=== PATIENT | female | born 1930 | race African-American/Black ===

== ENCOUNTER 2016-08-20 15:15 | Emergency (ER) | payer MEDICARE, MEDICAID ==
[~2016-08-20] VITALS: Ht 167.6 cm; Wt 71.0 kg
[~2016-08-20 15:15] MED LIST: ACET-2178 PO; ALPR-392 PO; AMLO5TAB4 PO; CARV3.1242 PO; DIPH25CA83 PO; GABA-531 PO; HYDR-3992 PO; MONT10TA24 PO; NEPVIT PO; SEVE800T8 PO; TRAM50TA3 PO
[2016-08-20] MEDS ORDERED: DICL100G5 TP (15:40)
[2016-08-20] MEDS ORDERED: EZET10TA PO (15:40)
[2016-08-20] MEDS ORDERED: SODIUM CHLORIDE 0.9% 1,000 ML IV ONE (16:11)
[2016-08-20 16:28] LABS: BASOPHILS % 1.2 % (0.0-2.0); EOSINOPHILS % 1.8 % (0.0-5.0); HEMATOCRIT. 37.1 % (36.0-48.0); HEMOGLOBIN. 11.9 g/dL (12.0-16.0); LYMPHOCYTES % 23.3 % (20.0-50.0); MEAN CORPUSCULAR HGB CONC 32.2 g/dL (31.0-37.0); MEAN CORPUSCULAR VOLUME 87.1 fL (81.0-99.0); MEAN PLATELET VOLUME 8.3 fl (7.4-10.4); MONOCYTES % 11.1 % (2.0-8.0); NEUTROPHILS % 62.6 % (40.0-76.0); PLATELET 194 x1000/uL (130-400); RED BLOOD CELL COUNT 4.26 mill/uL (4.2-5.4); WHITE BLOOD COUNT 6.2 x1000/uL (4.5-11.0)
[2016-08-20 16:36] LABS: CALCIUM 8.8 mg/dL (8.5-10.1)
[2016-08-20 18:55] VITALS: BP 129/63
== END 2016-08-20 19:25 | disposition home or self-care (01) ==
LOC: ER 16:26
DX: R19.7 Diarrhea, unspecified (principal); F41.9 Anxiety disorder, unspecified; F32.9 Major depressive disorder, single episode, unspecified; I11.0 Hypertensive heart disease with heart failure; I50.9 Heart failure, unspecified; Z91.013 Allergy to seafood; Z88.5 Allergy status to narcotic agent; Z88.7 Allergy status to serum and vaccine; Z88.6 Allergy status to analgesic agent; Z91.012 Allergy to eggs; Z79.1 Long term (current) use of non-steroidal anti-inflammatories (NSAID); Z79.899 Other long term (current) drug therapy; Z90.710 Acquired absence of both cervix and uterus; Z99.2 Dependence on renal dialysis
CPT/HCPCS: 36415; 80048; 82962; 85025; 99284; J7030

== ENCOUNTER 2016-10-09 19:03 | Emergency (ER) | payer MEDICARE, MEDICAID ==
[~2016-10-09] VITALS: Ht 165.1 cm; Wt 66.0 kg
[~2016-10-09 19:03] MED LIST changes: +DICL100G5 TP; +EZET10TA PO
[2016-10-09 20:59] LABS: BASOPHILS % 1.3 % (0.0-2.0); EOSINOPHILS % 3.7 % (0.0-5.0); HEMATOCRIT. 38.1 % (36.0-48.0); HEMOGLOBIN. 12.5 g/dL (12.0-16.0); LYMPHOCYTES % 31.1 % (20.0-50.0); MEAN CORPUSCULAR HEMOGLOBIN 28.9 pg (28.0-32.0); MEAN CORPUSCULAR VOLUME 88.3 fL (81.0-99.0); MEAN PLATELET VOLUME 8.5 fl (7.4-10.4); MONOCYTES % 13.9 % (2.0-8.0); PLATELET 147 x1000/uL (130-400); RED BLOOD CELL COUNT 4.31 mill/uL (4.2-5.4); RED CELL DISTRIBUTION WIDTH 17.8 % (11.6-14.6)
[2016-10-09 21:03] LABS: PARTIAL THROMBOPLASTIN TIME 26.1 sec (24.0-34.0); PROTHROMBIN TIME 10.6 sec
[2016-10-09 21:12] LABS: CARBON DIOXIDE 30 mEq/L (21-32); CHLORIDE 97 mEq/L (98-107); TROPONIN I 0.11 ng/mL (0.00-0.04)
[2016-10-09 22:57] VITALS: BP 127/55
== END 2016-10-09 23:51 | disposition home or self-care (01) ==
LOC: ER 19:05
DX: R19.7 Diarrhea, unspecified (principal); I12.0 Hypertensive chronic kidney disease with stage 5 chronic kidney disease or end stage renal disease; E11.22 Type 2 diabetes mellitus with diabetic chronic kidney disease; N18.6 End stage renal disease; Z99.2 Dependence on renal dialysis; Z88.8 Allergy status to other drugs, medicaments and biological substances; Z88.5 Allergy status to narcotic agent; Z79.899 Other long term (current) drug therapy; Z91.012 Allergy to eggs; Z91.018 Allergy to other foods; Z88.6 Allergy status to analgesic agent
CPT/HCPCS: 36415; 71010; 80053; 83690; 84484; 85025; 85610; 85730; 86850; 86900; 99285

== ENCOUNTER 2017-01-07 14:59 | Inpatient (IN) | payer MEDICARE, MEDICAID ==
[~2017-01-07] VITALS: Ht 165.1 cm; Wt 71.2 kg
[~2017-01-07 14:59] MED LIST changes: +DICL100G16 TP; -DICL100G5 TP; -EZET10TA PO; +ZET10 PO
[2017-01-07 16:53] LABS: CHLORIDE 96 mEq/L (98-107)
[2017-01-07 16:54] LABS: PROTHROMBIN TIME 10.7 sec (9.4-11.6)
[2017-01-07 16:55] LABS: BASOPHILS % 0.7 % (0.0-2.0); EOSINOPHILS % 2.3 % (0.0-5.0); HEMATOCRIT. 34.9 % (36.0-48.0); HEMOGLOBIN. 11.6 g/dL (12.0-16.0); LYMPHOCYTES % 24.7 % (20.0-50.0); MEAN CORPUSCULAR VOLUME 90.6 fL (81.0-99.0); MONOCYTES % 12.8 % (2.0-8.0); NEUTROPHILS % 59.5 % (40.0-76.0); PLATELET 196 x1000/uL (130-400); RED BLOOD CELL COUNT 3.86 mill/uL (4.2-5.4); RED CELL DISTRIBUTION WIDTH 19.2 % (11.6-14.6)
[2017-01-07 17:04] LABS: CARBON DIOXIDE 29 mEq/L (21-32); TROPONIN I 0.07 ng/mL (0.00-0.04)
[2017-01-07 22:00] VITALS: BP 134/49
[2017-01-07] MEDS ORDERED: DEXTROSE 50% WATER 50ML SYRINGE IV PRN (23:15)
[2017-01-07] MEDS ORDERED: ACETAMINOPHEN 325MG TABLET PO PRN (23:30)
[2017-01-08 00:02] VITALS: BP 147/48
[2017-01-08 04:00] VITALS: BP_SYST 110; BP_SYST 157; BP_DIAS 51; BP_DIAS 59
[2017-01-08] MEDS: HYDROCODONE/ACETAMINOPHEN 5/325MG TABLET PO PRN ×2 (05:24→21:22)
[2017-01-08 06:32] LABS: PHOSPHORUS 4.1 mg/dL (2.5-4.9); PREALBUMIN 19.7 mg/dL (20.0-40.0); T4 FREE 1.02 ng/dL (0.76-1.46)
[2017-01-08 07:11] LABS: CORTISOL 7.9 ucg/dL
[2017-01-08 07:15] LABS: VITAMIN B12 SERUM > 2000.0 pg/mL (211-911)
[2017-01-08 08:00] VITALS: BP 135/50
[2017-01-08] MEDS: BLOOD SUGAR DIAGNOSTIC STRIP TEST SCH ×4 (08:09→21:00)
[2017-01-08] MEDS: LOSARTAN POTASSIUM 25 MG TABLET PO SCH (09:00)
[2017-01-08] MEDS: CARVEDILOL 3.125 MG TABLET PO SCH ×2 (09:00→21:00)
[2017-01-08] MEDS: FOLIC ACID/VITAMIN B COMP W-C TABLET PO SCH (10:02)
[2017-01-08] MEDS: FAMOTIDINE 20MG TABLET PO SCH (10:02)
[2017-01-08] MEDS: SEVELAMER CARBONATE 800 MG TABLET PO SCH ×3 (10:03→18:38)
[2017-01-08 12:00] VITALS: BP_SYST 110; BP_SYST 121; BP_DIAS 50; BP_DIAS 77
[2017-01-08 16:00] VITALS: BP 114/54
[2017-01-08 20:00] VITALS: BP 137/60
[2017-01-08 20:46] LABS: CLARITY URINE CLOUDY (CLEAR); COLOR URINE DARK YELLOW (YELLOW); GLUCOSE URINE NEGATIVE (NEGATIVE); KETONES URINE TRACE (NEGATIVE); LEUKOCYTE ESTERASE URINE TRACE (NEGATIVE); NITRITE URINE NEGATIVE (NEGATIVE); OCCULT BLOOD URINE NEGATIVE (NEGATIVE); PROTEIN URINE 1+ (NEGATIVE); SPECIFIC GRAVITY URINE 1.018 (1.005-1.030); UROBILINOGEN URINE 0.2 E.U./dL (0.2-1.0)
[2017-01-08] MEDS ORDERED: EPOETIN ALFA 4000UNITS/ML VIAL SUBCUT SCH (21:00)
[2017-01-09] VITALS (7 sets, daily range): BP systolic 96–172; BP diastolic 40–68
[2017-01-09] MEDS: ATORVASTATIN CALCIUM 10MG TABLET PO SCH ×2 (01:55→22:46)
[2017-01-09] MEDS: HYDROCODONE/ACETAMINOPHEN 5/325MG TABLET PO PRN (04:47)
[2017-01-09 05:29] LABS: BASOPHILS % 0.6 % (0.0-2.0); HEMATOCRIT. 36.5 % (36.0-48.0); LYMPHOCYTES % 16.2 % (20.0-50.0); MEAN CORPUSCULAR HEMOGLOBIN 30.4 pg (28.0-32.0); MEAN CORPUSCULAR VOLUME 92.6 fL (81.0-99.0); MEAN PLATELET VOLUME 8.1 fl (7.4-10.4); MONOCYTES % 12.7 % (2.0-8.0); NEUTROPHILS % 68.5 % (40.0-76.0); PLATELET 212 x1000/uL (130-400); RED BLOOD CELL COUNT 3.94 mill/uL (4.2-5.4); RED CELL DISTRIBUTION WIDTH 18.7 % (11.6-14.6)
[2017-01-09 06:28] LABS: PHOSPHORUS 2.7 mg/dL (2.5-4.9)
[2017-01-09] MEDS: BLOOD SUGAR DIAGNOSTIC STRIP TEST SCH ×4 (07:40→22:47)
[2017-01-09] MEDS: CLOPIDOGREL 75MG TABLET PO SCH (09:02)
[2017-01-09] MEDS: SEVELAMER CARBONATE 800 MG TABLET PO SCH ×3 (09:02→18:27)
[2017-01-09] MEDS: FOLIC ACID/VITAMIN B COMP W-C TABLET PO SCH (09:02)
[2017-01-09] MEDS: FAMOTIDINE 20MG TABLET PO SCH (09:02)
[2017-01-09] MEDS: CARVEDILOL 3.125 MG TABLET PO SCH ×2 (09:03→22:46)
[2017-01-09] MEDS: LOSARTAN POTASSIUM 25 MG TABLET PO SCH (09:03)
[2017-01-09] MEDS ORDERED: BISACODYL 10MG SUPP PR PRN (13:45)
[2017-01-09] MEDS: LACTULOSE 20G/30ML UDC PO SCH ×2 (15:15→22:00)
[2017-01-09] MEDS ORDERED: LIDOCAINE HCL 1% 20ML VIAL (Pyxis) INJ INFIL NR (16:00)
[2017-01-09] MEDS ORDERED: METHYLPREDNISOLONE ACETATE 40MG/ML VIAL IM NR (16:00)
[2017-01-10] VITALS (7 sets, daily range): BP systolic 104–169; BP diastolic 46–69
[2017-01-10] MEDS: LACTULOSE 20G/30ML UDC PO SCH ×2 (05:59→14:00)
[2017-01-10] MEDS: BLOOD SUGAR DIAGNOSTIC STRIP TEST SCH ×3 (07:40→17:40)
[2017-01-10 07:43] LABS: BASOPHILS % 0.5 % (0.0-2.0); EOSINOPHILS % 1.6 % (0.0-5.0); HEMATOCRIT. 35.2 % (36.0-48.0); HEMOGLOBIN. 11.7 g/dL (12.0-16.0); LYMPHOCYTES % 20.2 % (20.0-50.0); MEAN CORPUSCULAR HEMOGLOBIN 30.3 pg (28.0-32.0); MEAN CORPUSCULAR VOLUME 91.3 fL (81.0-99.0); MEAN PLATELET VOLUME 8.4 fl (7.4-10.4); MONOCYTES % 12.8 % (2.0-8.0); NEUTROPHILS % 64.9 % (40.0-76.0); PLATELET 210 x1000/uL (130-400); RED BLOOD CELL COUNT 3.86 mill/uL (4.2-5.4); RED CELL DISTRIBUTION WIDTH 19.2 % (11.6-14.6)
[2017-01-10] MEDS: FAMOTIDINE 20MG TABLET PO SCH (09:13)
[2017-01-10] MEDS: FOLIC ACID/VITAMIN B COMP W-C TABLET PO SCH (09:13)
[2017-01-10] MEDS: CARVEDILOL 3.125 MG TABLET PO SCH (09:13)
[2017-01-10] MEDS: SEVELAMER CARBONATE 800 MG TABLET PO SCH ×3 (09:13→18:29)
[2017-01-10] MEDS: LOSARTAN POTASSIUM 25 MG TABLET PO SCH (09:13)
[2017-01-10] MEDS: CLOPIDOGREL 75MG TABLET PO SCH (09:14)
[2017-01-11 07:22] LABS: 25-HYDROXY VITAMIN D3 8.4 ng/mL (.)
== END 2017-01-10 20:10 | disposition home or self-care (01) | DRG 551 ==
LOC: EDBEDREQ 19:00 → ER 19:14 → ENRESERV 19:37 → 7WST 21:54
PROVIDERS: ADMIT Internal Medicine Endocrinology, Diabetes & Metabolism; ATTEND Internal Medicine Endocrinology, Diabetes & Metabolism
DX: M48.02 Spinal stenosis, cervical region (principal); N18.6 End stage renal disease; I13.2 Hypertensive heart and chronic kidney disease with heart failure and with stage 5 chronic kidney disease, or end stage renal disease; E46 Unspecified protein-calorie malnutrition; E11.22 Type 2 diabetes mellitus with diabetic chronic kidney disease; E11.42 Type 2 diabetes mellitus with diabetic polyneuropathy; I27.2 Other secondary pulmonary hypertension; I48.91 Unspecified atrial fibrillation; E11.51 Type 2 diabetes mellitus with diabetic peripheral angiopathy without gangrene; E11.621 Type 2 diabetes mellitus with foot ulcer; I69.351 Hemiplegia and hemiparesis following cerebral infarction affecting right dominant side; G95.9 Disease of spinal cord, unspecified; D47.2 Monoclonal gammopathy; E78.5 Hyperlipidemia, unspecified; D63.8 Anemia in other chronic diseases classified elsewhere; Z99.2 Dependence on renal dialysis; I95.1 Orthostatic hypotension; E11.319 Type 2 diabetes mellitus with unspecified diabetic retinopathy without macular edema; E11.43 Type 2 diabetes mellitus with diabetic autonomic (poly)neuropathy; E78.00 Pure hypercholesterolemia, unspecified; H54.8 Legal blindness, as defined in USA; H91.90 Unspecified hearing loss, unspecified ear; I25.10 Atherosclerotic heart disease of native coronary artery without angina pectoris; I50.9 Heart failure, unspecified; I65.29 Occlusion and stenosis of unspecified carotid artery; J44.9 Chronic obstructive pulmonary disease, unspecified; K59.00 Constipation, unspecified; M15.9 Polyosteoarthritis, unspecified; M48.06 Spinal stenosis, lumbar region; R62.7 Adult failure to thrive; E55.9 Vitamin D deficiency, unspecified; L97.529 Non-pressure chronic ulcer of other part of left foot with unspecified severity; M51.36 Other intervertebral disc degeneration, lumbar region; M50.30 Other cervical disc degeneration, unspecified cervical region; R29.6 Repeated falls; I69.328 Other speech and language deficits following cerebral infarction; Z80.1 Family history of malignant neoplasm of trachea, bronchus and lung; Z80.3 Family history of malignant neoplasm of breast; Z82.3 Family history of stroke; Z83.3 Family history of diabetes mellitus; Z86.79 Personal history of other diseases of the circulatory system; Z87.19 Personal history of other diseases of the digestive system; Z90.710 Acquired absence of both cervix and uterus; Z90.722 Acquired absence of ovaries, bilateral; Z98.41 Cataract extraction status, right eye; Z98.42 Cataract extraction status, left eye; S43.101A Unspecified dislocation of right acromioclavicular joint, initial encounter; X58.XXXA Exposure to other specified factors, initial encounter; Y93.89 Activity, other specified; Y92.89 Other specified places as the place of occurrence of the external cause; Y99.8 Other external cause status; Z88.6 Allergy status to analgesic agent; Z91.012 Allergy to eggs; Z91.013 Allergy to seafood; Z88.8 Allergy status to other drugs, medicaments and biological substances; Z91.018 Allergy to other foods
CPT/HCPCS: 36415; 70450; 70551; 71010; 72141; 73030; 74010; 80048; 80053; 81001; 82306; 82533; 82607; 82962; 83605; 84100; 84134; 84439; 84443; 84484; 85025; 85610; 86850; 86900; 87040; 87077; 87086; 87186; 92523; 97035; 97110; 97162; 97166; 97530; 99285; C1893; J1030; J3490

== ENCOUNTER 2017-02-26 11:19 | Emergency (ER) | payer MEDICARE, MEDICAID ==
[~2017-02-26] VITALS: Ht 165.1 cm; Wt 70.0 kg
[2017-02-26 13:19] LABS: BASOPHILS % 0.6 % (0.0-2.0); EOSINOPHILS % 0.9 % (0.0-5.0); HEMATOCRIT. 38.3 % (36.0-48.0); HEMOGLOBIN. 12.8 g/dL (12.0-16.0); LYMPHOCYTES % 14.6 % (20.0-50.0); MEAN CORPUSCULAR HEMOGLOBIN 31.8 pg (28.0-32.0); MEAN CORPUSCULAR VOLUME 95.2 fL (81.0-99.0); MEAN PLATELET VOLUME 7.5 fl (7.4-10.4); MONOCYTES % 13.6 % (2.0-8.0); NEUTROPHILS % 70.3 % (40.0-76.0); PLATELET 177 x1000/uL (130-400); RED BLOOD CELL COUNT 4.02 mill/uL (4.2-5.4); RED CELL DISTRIBUTION WIDTH 20.4 % (11.6-14.6)
[2017-02-26 13:29] LABS: AMMONIA < 25 uMol/L (<32)
[2017-02-26 13:35] LABS: CARBON DIOXIDE 34 mEq/L (21-32); CHLORIDE 93 mEq/L (98-107); TROPONIN I 0.09 ng/mL (0.00-0.04)
[2017-02-26 17:49] VITALS: BP 156/54
== END 2017-02-26 17:48 | disposition home or self-care (01) ==
LOC: ER 12:27
DX: R25.1 Tremor, unspecified (principal); R51 Headache; I51.7 Cardiomegaly; E11.9 Type 2 diabetes mellitus without complications; I10 Essential (primary) hypertension; F03.90 Unspecified dementia, unspecified severity, without behavioral disturbance, psychotic disturbance, mood disturbance, and anxiety; Z88.6 Allergy status to analgesic agent; Z88.8 Allergy status to other drugs, medicaments and biological substances; Z99.2 Dependence on renal dialysis; Z86.73 Personal history of transient ischemic attack (TIA), and cerebral infarction without residual deficits; Z90.710 Acquired absence of both cervix and uterus; Z91.012 Allergy to eggs; Z91.013 Allergy to seafood
CPT/HCPCS: 36415; 70450; 71010; 80053; 82140; 83605; 83690; 83880; 84484; 85025; 87040; 93005; 99285; J7030

== ENCOUNTER 2018-01-15 20:11 | Inpatient (IN) | payer MEDICARE, MEDICAID ==
[~2018-01-15] VITALS: Ht 165.1 cm; Wt 68.0 kg
[~2018-01-15 20:11] MED LIST changes: -ALPR-392 PO; -DICL100G16 TP; -DIPH25CA83 PO; +FOLI1TAB33 PO; -NEPVIT PO; -ZET10 PO
[2018-01-15 21:29] LABS: CHLORIDE 103 mEq/L (98-107)
[2018-01-15 21:30] LABS: BASOPHILS % 0.5 % (0.0-2.0); EOSINOPHILS % 2.4 % (0.0-5.0); HEMOGLOBIN. 12.7 g/dL (12.0-16.0); INR 1.1; LYMPHOCYTES % 11.7 % (20.0-50.0); MEAN CORPUSCULAR HEMOGLOBIN 28.5 pg (28.0-32.0); MEAN CORPUSCULAR VOLUME 92.2 fL (81.0-99.0); MEAN PLATELET VOLUME 8.9 fl (7.4-10.4); MONOCYTES % 11.2 % (2.0-8.0); NEUTROPHILS % 74.2 % (40.0-76.0); PLATELET 158 x1000/uL (130-400); PROTHROMBIN TIME 11.2 sec (9.1-11.1); RED BLOOD CELL COUNT 4.45 mill/uL (4.2-5.4); RED CELL DISTRIBUTION WIDTH 19.4 % (11.6-14.6)
[2018-01-15 23:22] LABS: CLARITY URINE TURBID (CLEAR); COLOR URINE YELLOW (YELLOW); KETONES URINE TRACE (NEGATIVE); LEUKOCYTE ESTERASE URINE 3+ (NEGATIVE); NITRITE URINE NEGATIVE (NEGATIVE); OCCULT BLOOD URINE 2+ (NEGATIVE); PROTEIN URINE 4+ (NEGATIVE); SPECIFIC GRAVITY URINE 1.015 (1.005-1.030); UROBILINOGEN URINE 0.2 E.U./dL (0.2-1.0)
[2018-01-15] MEDS ORDERED: VANCOMYCIN 1 G PREMIX 200 ML IV SCH (23:45)
[2018-01-15] MEDS ORDERED: PIPERACILLIN/TAZ 3.375G PREMIX 50 ML IV SCH (23:48)
[2018-01-16 06:00] VITALS: BP 185/71
[2018-01-16] MEDS ORDERED: ACETAMINOPHEN 325 MG PO SCH (07:30)
[2018-01-16] MEDS ORDERED: HYDROXYZINE PAMOATE 25 MG PO SCH (07:30)
[2018-01-16] MEDS ORDERED: MEDICATION NOT ON FORMULARY EA (Tramadol Hcl 50 MG) PO SCH (07:30)
[2018-01-16] MEDS ORDERED: HYDROXYZINE PAMOATE 25 MG PO PRN (07:45)
[2018-01-16] MEDS ORDERED: ACETAMINOPHEN 325MG TABLET PO PRN (07:45)
[2018-01-16 08:00] VITALS: BP 190/76
[2018-01-16] MEDS ORDERED: TRAMADOL 50MG TABLET PO PRN (08:00)
[2018-01-16] MEDS: GABAPENTIN 300MG CAPSULE PO SCH ×3 (08:21→21:33)
[2018-01-16] MEDS: FOLIC ACID/VITAMIN B COMP W-C TABLET PO SCH (08:21)
[2018-01-16] MEDS: SEVELAMER CARBONATE 800 MG TABLET PO SCH ×3 (08:21→18:31)
[2018-01-16] MEDS: CARVEDILOL 3.125 MG TABLET PO SCH ×2 (08:21→20:58)
[2018-01-16] MEDS: AMLODIPINE 5MG TABLET PO SCH (08:22)
[2018-01-16] MEDS ORDERED: SEVELAMER CARBONATE 2400 MG PO SCH (09:00)
[2018-01-16] MEDS ORDERED: MEDICATION NOT ON FORMULARY EA (Amlodipine Besylate (Norvasc) 5 MG) PO SCH (09:00)
[2018-01-16] MEDS ORDERED: VIT B COMPLEX AND C PO SCH (09:00)
[2018-01-16] MEDS ORDERED: MEDICATION NOT ON FORMULARY EA (Gabapentin 300 MG) PO SCH (09:00)
[2018-01-16] MEDS ORDERED: [UNRECOGNIZED DRUG - OTHER] PO SCH (09:00)
[2018-01-16] MEDS ORDERED: FOLIC ACID PO SCH (09:00)
[2018-01-16 12:00] VITALS: BP 150/60
[2018-01-16] MEDS: BLOOD SUGAR DIAGNOSTIC STRIP TEST SCH ×3 (12:10→20:44)
[2018-01-16 16:00] VITALS: BP 105/72
[2018-01-16] MEDS ORDERED: SODIUM CHLORIDE 0.45% 1,000 ML IV ONE (16:00)
[2018-01-16] MEDS: NYSTATIN 100,000 UNITS/ML 5ML UDC SSW SCH (18:31)
[2018-01-16] MEDS: MONTELUKAST SODIUM 10MG TABLET PO SCH (18:31)
[2018-01-16] MEDS ORDERED: PIPERACILLIN/TAZOBACTAM 2.25 G in DEXTROSE 5% WATER 50 ML IV SCH (19:00)
[2018-01-16 20:00] VITALS: BP 144/52
[2018-01-16] MEDS: PIPERACILLIN/TAZ 2.25G PREMIX 50 ML IV SCH (21:02)
[2018-01-17] VITALS: BP 159/67
[2018-01-17] MEDS: NYSTATIN 100,000 UNITS/ML 5ML UDC SSW SCH ×4 (00:16→17:27)
[2018-01-17 04:00] VITALS: BP 170/78
[2018-01-17] MEDS: PIPERACILLIN/TAZ 2.25G PREMIX 50 ML IV SCH ×3 (05:21→21:15)
[2018-01-17] MEDS: GABAPENTIN 300MG CAPSULE PO SCH ×3 (05:21→21:15)
[2018-01-17] MEDS: BLOOD SUGAR DIAGNOSTIC STRIP TEST SCH ×4 (07:10→20:12)
[2018-01-17 07:33] LABS: BASOPHILS % 0.5 % (0.0-2.0); EOSINOPHILS % 3.3 % (0.0-5.0); HEMOGLOBIN. 12.4 g/dL (12.0-16.0); LYMPHOCYTES % 8.3 % (20.0-50.0); MEAN CORPUSCULAR HEMOGLOBIN 28.4 pg (28.0-32.0); MEAN CORPUSCULAR VOLUME 89.9 fL (81.0-99.0); MEAN PLATELET VOLUME 8.9 fl (7.4-10.4); MONOCYTES % 12.2 % (2.0-8.0); NEUTROPHILS % 75.7 % (40.0-76.0); PLATELET 122 x1000/uL (130-400); RED BLOOD CELL COUNT 4.34 mill/uL (4.2-5.4); RED CELL DISTRIBUTION WIDTH 18.7 % (11.6-14.6)
[2018-01-17 07:36] LABS: PHOSPHORUS 2.4 mg/dL (2.5-4.9)
[2018-01-17] MEDS: SEVELAMER CARBONATE 800 MG TABLET PO SCH ×4 (07:40→17:27)
[2018-01-17 08:00] VITALS: BP 173/69
[2018-01-17] MEDS: AMLODIPINE 5MG TABLET PO SCH (09:43)
[2018-01-17] MEDS: CARVEDILOL 3.125 MG TABLET PO SCH ×2 (09:43→20:09)
[2018-01-17] MEDS: FOLIC ACID/VITAMIN B COMP W-C TABLET PO SCH (09:43)
[2018-01-17 14:04] VITALS: BP 154/56
[2018-01-17 16:18] VITALS: BP 154/61
[2018-01-17] MEDS: MONTELUKAST SODIUM 10MG TABLET PO SCH (17:27)
[2018-01-17] MEDS ORDERED: SODIUM PHOS,M-BASIC-D-BASIC 10 MM in DEXT 5% WATER 246.6667 ML IV NR (18:30)
[2018-01-17 20:00] VITALS: BP 176/75
[2018-01-17] MEDS ORDERED: CLONIDINE 0.1MG TABLET PO PRN (20:00)
[2018-01-18] VITALS (8 sets, daily range): BP systolic 128–182; BP diastolic 44–78
[2018-01-18] MEDS: PIPERACILLIN/TAZ 2.25G PREMIX 50 ML IV SCH (05:23)
[2018-01-18] MEDS: NYSTATIN 100,000 UNITS/ML 5ML UDC SSW SCH ×4 (05:24→17:34)
[2018-01-18] MEDS: GABAPENTIN 300MG CAPSULE PO SCH ×2 (05:24→15:37)
[2018-01-18] MEDS ORDERED: VANCOMYCIN 1 G PREMIX 200 ML IV NR (06:00)
[2018-01-18] MEDS: BLOOD SUGAR DIAGNOSTIC STRIP TEST SCH ×3 (06:25→16:42)
[2018-01-18] MEDS: FOLIC ACID/VITAMIN B COMP W-C TABLET PO SCH (08:43)
[2018-01-18] MEDS: AMLODIPINE 5MG TABLET PO SCH (08:44)
[2018-01-18] MEDS: CARVEDILOL 3.125 MG TABLET PO SCH (08:44)
[2018-01-18] MEDS: SEVELAMER CARBONATE 800 MG TABLET PO SCH ×3 (08:50→17:34)
[2018-01-18 09:26] LABS: PHOSPHORUS 3.9 mg/dL (2.5-4.9)
[2018-01-18] MEDS: LIPASE/PROTEASE/AMYLASE 4,200/14,200/24,600 UNITS CAP DR PO SCH ×2 (12:40→17:34)
[2018-01-18] MEDS: MONTELUKAST SODIUM 10MG TABLET PO SCH (17:34)
== END 2018-01-18 22:40 | disposition home IV services (08) | DRG 152 ==
LOC: ER 20:11 → 8WST 01-16 00:01 → EDBEDREQSVC 01-16 01:01 → EDBEDREQ 01-16 01:01 → EDBEDREQTM 01-16 01:06 → EDBEDREQDT 01-16 01:06 → ENRESERV 01-16 04:13
PROVIDERS: ADMIT Internal Medicine Endocrinology, Diabetes & Metabolism; ATTEND Internal Medicine Endocrinology, Diabetes & Metabolism
PROC: 5A1D70Z Performance of Urinary Filtration, Intermittent, Less than 6 Hours Per Day (ICD-10-PCS; 2018-01-16)
PROC: 5A1D70Z Performance of Urinary Filtration, Intermittent, Less than 6 Hours Per Day (ICD-10-PCS; principal; 2018-01-17)
DX: J02.9 Acute pharyngitis, unspecified (principal); N18.6 End stage renal disease; G95.20 Unspecified cord compression; I12.0 Hypertensive chronic kidney disease with stage 5 chronic kidney disease or end stage renal disease; E46 Unspecified protein-calorie malnutrition; I27.20 Pulmonary hypertension, unspecified; K80.20 Calculus of gallbladder without cholecystitis without obstruction; D47.2 Monoclonal gammopathy; M15.9 Polyosteoarthritis, unspecified; K44.9 Diaphragmatic hernia without obstruction or gangrene; E83.39 Other disorders of phosphorus metabolism; D64.9 Anemia, unspecified; E11.22 Type 2 diabetes mellitus with diabetic chronic kidney disease; E11.319 Type 2 diabetes mellitus with unspecified diabetic retinopathy without macular edema; E11.42 Type 2 diabetes mellitus with diabetic polyneuropathy; M48.061 Spinal stenosis, lumbar region without neurogenic claudication; E11.621 Type 2 diabetes mellitus with foot ulcer; E11.69 Type 2 diabetes mellitus with other specified complication; E78.00 Pure hypercholesterolemia, unspecified; R09.02 Hypoxemia; R47.02 Dysphasia; H54.7 Unspecified visual loss; E86.0 Dehydration; I25.10 Atherosclerotic heart disease of native coronary artery without angina pectoris; I48.0 Paroxysmal atrial fibrillation; E11.51 Type 2 diabetes mellitus with diabetic peripheral angiopathy without gangrene; I95.1 Orthostatic hypotension; J44.9 Chronic obstructive pulmonary disease, unspecified; K21.9 Gastro-esophageal reflux disease without esophagitis; K22.2 Esophageal obstruction; K86.89 Other specified diseases of pancreas; Z80.1 Family history of malignant neoplasm of trachea, bronchus and lung; Z80.3 Family history of malignant neoplasm of breast; Z82.3 Family history of stroke; Z82.49 Family history of ischemic heart disease and other diseases of the circulatory system; Z83.3 Family history of diabetes mellitus; Z86.010 Personal history of colon polyps; Z86.73 Personal history of transient ischemic attack (TIA), and cerebral infarction without residual deficits; Z86.79 Personal history of other diseases of the circulatory system; Z87.19 Personal history of other diseases of the digestive system; Z90.710 Acquired absence of both cervix and uterus; Z99.2 Dependence on renal dialysis; Z91.013 Allergy to seafood; Z91.012 Allergy to eggs; Z88.8 Allergy status to other drugs, medicaments and biological substances; Z88.5 Allergy status to narcotic agent; Z91.018 Allergy to other foods; Z79.899 Other long term (current) drug therapy; Z90.722 Acquired absence of ovaries, bilateral; Z98.41 Cataract extraction status, right eye; Z98.42 Cataract extraction status, left eye; Z86.14 Personal history of Methicillin resistant Staphylococcus aureus infection; Z68.25 Body mass index [BMI] 25.0-25.9, adult
CPT/HCPCS: 36415; 70450; 71045; 80048; 80053; 80202; 81003; 82550; 82962; 83605; 83735; 83880; 84100; 84484; 85025; 85610; 85651; 86140; 87040; 87070; 87086; 87106; 87205; 93005; 96365; 96366; 99285; J2543; J3370; J3490; J7030; J7050; J7060

== ENCOUNTER → 2018-02-12 | Day surgery (SDC) | payer MEDICARE, MEDICAID ==
[~2018-02-12] VITALS: Ht 167.6 cm; Wt 71.2 kg
[2018-02-12] VITALS (12 sets, daily range): BP systolic 195–201; BP diastolic 77–95
[~2018-02-12] MED LIST changes: +CEFAZOLIN 1000MG PREMIX 50 ML IV ONE; +FENTANYL CITRATE/PF 50MCG/ML 2ML VIAL IV ONE; +FENTANYL CITRATE/PF 50MCG/ML 2ML VIAL ONE; +HEPARIN 1000 UNITS/ML 10ML ONE; +IOHEXOL-300 100 ML BOTTLE ONE; +LIDOCAINE HCL 1% 20ML VIAL (Pyxis) INJ ONE; +SODIUM BICARBONATE 4% (2.4MEQ) 5ML VIAL IV ONE
[2018-02-12 10:03] LABS: HEMATOCRIT. 41.8 % (36.0-48.0); HEMOGLOBIN. 13.3 g/dL (12.0-16.0); MEAN CORPUSCULAR HEMOGLOBIN 28.4 pg (28.0-32.0); MEAN PLATELET VOLUME 8.4 fl (7.4-10.4); PLATELET 191 x1000/uL (130-400); RED CELL DISTRIBUTION WIDTH 19.9 % (11.6-14.6)
[2018-02-12 10:13] LABS: INR 1.1; PARTIAL THROMBOPLASTIN TIME 29.1 sec (23.4-31.0); PROTHROMBIN TIME 10.6 sec (9.1-11.1)
[2018-02-12 11:17] LABS: PLATELET ESTIMATE NORMAL
== END | disposition home or self-care (01) ==
LOC: ANGIO 09:22
PROVIDERS: ATTEND Internal Medicine Nephrology
DX: E11.22 Type 2 diabetes mellitus with diabetic chronic kidney disease (principal); N18.6 End stage renal disease; J44.9 Chronic obstructive pulmonary disease, unspecified; E11.42 Type 2 diabetes mellitus with diabetic polyneuropathy; E78.00 Pure hypercholesterolemia, unspecified; I25.10 Atherosclerotic heart disease of native coronary artery without angina pectoris
CPT/HCPCS: 36415; 36558; 76937; 77001; 82947; 84132; 85025; 85610; 85730; C1725; C1750; C1769; J0690; J1644; J3010; J3490; J7040; Q9967; J7050

== ENCOUNTER 2018-03-08 04:41 | Inpatient (IN) | payer MEDICARE, MEDICAID ==
[~2018-03-08] VITALS: Ht 165.1 cm; Wt 70.3 kg
[~2018-03-08 04:41] MED LIST changes: -CEFAZOLIN 1000MG PREMIX 50 ML IV ONE; -FENTANYL CITRATE/PF 50MCG/ML 2ML VIAL IV ONE; -FENTANYL CITRATE/PF 50MCG/ML 2ML VIAL ONE; -HEPARIN 1000 UNITS/ML 10ML ONE; -IOHEXOL-300 100 ML BOTTLE ONE; -LIDOCAINE HCL 1% 20ML VIAL (Pyxis) INJ ONE; -SODIUM BICARBONATE 4% (2.4MEQ) 5ML VIAL IV ONE
[2018-03-08] MEDS ORDERED: ACETAMINOPHEN 325MG TABLET PO STA (05:14)
[2018-03-08] MEDS ORDERED: ONDANSETRON HCL 4MG/2ML INJ IV STA (05:14)
[2018-03-08] MEDS ORDERED: PIPERACILLIN/TAZ 3.375G PREMIX 50 ML IV ONE (05:15)
[2018-03-08] MEDS ORDERED: KETOROLAC 15MG/ML VIAL IV ONE (05:15)
[2018-03-08] MEDS ORDERED: VANCOMYCIN 1 G PREMIX 200 ML IV ONE (05:15)
[2018-03-08 06:42] LABS: HEMATOCRIT. 46.9 % (36.0-48.0); HEMOGLOBIN. 14.5 g/dL (12.0-16.0); MEAN CORPUSCULAR HEMOGLOBIN 27.7 pg (28.0-32.0); MEAN CORPUSCULAR VOLUME 89.8 fL (81.0-99.0); MEAN PLATELET VOLUME 8.5 fl (7.4-10.4); PLATELET 142 x1000/uL (130-400); RED BLOOD CELL COUNT 5.22 mill/uL (4.2-5.4)
[2018-03-08 06:47] LABS: INR 1.1; PROTHROMBIN TIME 11.4 sec (9.1-11.1)
[2018-03-08 06:51] LABS: CHLORIDE 100 mEq/L (98-107)
[2018-03-08 07:34] LABS: PLATELET ESTIMATE NORMAL
[2018-03-08] MEDS ORDERED: CLONIDINE 0.1MG TABLET PO PRN (10:45)
[2018-03-08 11:20] LABS: CLARITY URINE TURBID (CLEAR); COLOR URINE YELLOW (YELLOW); KETONES URINE NEGATIVE (NEGATIVE); LEUKOCYTE ESTERASE URINE 3+ (NEGATIVE); NITRITE URINE NEGATIVE (NEGATIVE); OCCULT BLOOD URINE 2+ (NEGATIVE); PH URINE 7.5 (4.5-8.0); PROTEIN URINE 3+ (NEGATIVE); SPECIFIC GRAVITY URINE 1.012 (1.005-1.030); UROBILINOGEN URINE 0.2 E.U./dL (0.2-1.0)
[2018-03-08] MEDS ORDERED: AMLODIPINE 5MG TABLET PO SCH (13:54)
[2018-03-08] MEDS ORDERED: PIPERACILLIN/TAZ 2.25G PREMIX 50 ML IV SCH ×2 (14:00→22:00)
[2018-03-08] MEDS ORDERED: CARVEDILOL 3.125 MG TABLET PO SCH ×2 (14:00→21:00)
[2018-03-08] MEDS ORDERED: DEXTROSE 5% WATER 1,000 ML IV SCH (14:01)
[2018-03-08] MEDS: BLOOD SUGAR DIAGNOSTIC STRIP TEST SCH ×2 (14:07→18:00)
[2018-03-08 16:00] VITALS: BP 178/73
[2018-03-08] MEDS ORDERED: HEPARIN SODIUM 1,000 UNIT/1ML VIAL IV NR (18:00)
[2018-03-08] MEDS: INSULIN LISPRO 100 UNITS/ML SUBCUT SCH (18:00)
[2018-03-08] MEDS ORDERED: VANCOMYCIN 750 MG PREMIX 150 ML IV NR (18:00)
[2018-03-08 20:00] VITALS: BP 154/58
[2018-03-08] MEDS: ONDANSETRON HCL 4MG/2ML INJ IV PRN (23:12)
[2018-03-08] MEDS: HYDROMORPHONE HCL/PF 2MG/ML CPJ IV PRN (23:12)
[2018-03-09] VITALS: BP 159/61
[2018-03-09] MEDS: BLOOD SUGAR DIAGNOSTIC STRIP TEST SCH ×4 (00:13→17:39)
[2018-03-09] MEDS: INSULIN LISPRO 100 UNITS/ML SUBCUT SCH ×5 (00:13→17:39)
[2018-03-09 04:00] VITALS: BP 192/76
[2018-03-09] MEDS ORDERED: AMLODIPINE 5MG TABLET PO SCH ×2 (06:00→21:00)
[2018-03-09 06:17] LABS: HEMATOCRIT. 39.5 % (36.0-48.0); HEMOGLOBIN. 12.6 g/dL (12.0-16.0); MEAN CORPUSCULAR HEMOGLOBIN 28.1 pg (28.0-32.0); MEAN CORPUSCULAR VOLUME 88.2 fL (81.0-99.0); MEAN PLATELET VOLUME 8.8 fl (7.4-10.4); PLATELET 119 x1000/uL (130-400); RED BLOOD CELL COUNT 4.47 mill/uL (4.2-5.4); RED CELL DISTRIBUTION WIDTH 20.2 % (11.6-14.6)
[2018-03-09 08:00] VITALS: BP 198/64
[2018-03-09 08:18] LABS: PHOSPHORUS 3.2 mg/dL (2.5-4.9)
[2018-03-09] MEDS ORDERED: AMLODIPINE 5MG TABLET PO NR (08:46)
[2018-03-09] MEDS: ONDANSETRON HCL 4MG/2ML INJ IV PRN (09:00)
[2018-03-09 09:39] LABS: PLATELET ESTIMATE DECREASED
[2018-03-09 12:00] VITALS: BP 167/60
[2018-03-09] MEDS: NIFEDIPINE XL 60MG TAB PO SCH (12:04)
[2018-03-09] MEDS: HYDROMORPHONE HCL/PF 2MG/ML CPJ IV PRN ×2 (12:04→21:17)
[2018-03-09] MEDS ORDERED: TRAMADOL 50MG TABLET PO PRN (12:45)
[2018-03-09] MEDS: SEVELAMER CARBONATE 800 MG TABLET PO SCH ×2 (13:10→17:39)
[2018-03-09] MEDS: LIPASE/PROTEASE/AMYLASE 4,200/14,200/24,600 UNITS CAP DR PO SCH ×2 (13:10→17:39)
[2018-03-09] MEDS: FOLIC ACID/VITAMIN B COMP W-C TABLET PO SCH ×2 (14:39→17:39)
[2018-03-09 16:00] VITALS: BP 115/49
[2018-03-09 20:00] VITALS: BP 121/54
[2018-03-09] MEDS: PIPERACILLIN/TAZ 2.25G PREMIX 50 ML IV SCH (20:48)
[2018-03-09] MEDS ORDERED: PIPERACILLIN/TAZOBACTAM 2.25 G in DEXTROSE 5% WATER 50 ML IV SCH (22:00)
[2018-03-10] MEDS: INSULIN LISPRO 100 UNITS/ML SUBCUT SCH ×4 (00:03→18:05)
[2018-03-10] MEDS: BLOOD SUGAR DIAGNOSTIC STRIP TEST SCH ×5 (00:03→21:30)
[2018-03-10 00:15] VITALS: BP 132/57
[2018-03-10 04:00] VITALS: BP 136/61
[2018-03-10] MEDS: PIPERACILLIN/TAZ 2.25G PREMIX 50 ML IV SCH ×3 (05:46→21:50)
[2018-03-10 08:00] VITALS: BP 132/43
[2018-03-10] MEDS: SEVELAMER CARBONATE 800 MG TABLET PO SCH ×3 (08:10→18:06)
[2018-03-10] MEDS: LIPASE/PROTEASE/AMYLASE 4,200/14,200/24,600 UNITS CAP DR PO SCH ×3 (09:34→18:06)
[2018-03-10] MEDS: FOLIC ACID/VITAMIN B COMP W-C TABLET PO SCH (09:34)
[2018-03-10] MEDS: NIFEDIPINE XL 60MG TAB PO SCH (09:35)
[2018-03-10 10:36] LABS: HEMATOCRIT. 40.1 % (36.0-48.0); HEMOGLOBIN. 12.5 g/dL (12.0-16.0); MEAN CORPUSCULAR HEMOGLOBIN 27.5 pg (28.0-32.0); MEAN CORPUSCULAR VOLUME 87.9 fL (81.0-99.0); PLATELET 110 x1000/uL (130-400); RED BLOOD CELL COUNT 4.56 mill/uL (4.2-5.4); RED CELL DISTRIBUTION WIDTH 20.4 % (11.6-14.6)
[2018-03-10 11:02] LABS: PHOSPHORUS 3.5 mg/dL (2.5-4.9)
[2018-03-10] MEDS: HYDROMORPHONE HCL/PF 2MG/ML CPJ IV PRN (11:27)
[2018-03-10 12:00] VITALS: BP 127/53
[2018-03-10 13:21] LABS: PLATELET ESTIMATE DECREASED
[2018-03-10] MEDS ORDERED: VANCOMYCIN 1 G PREMIX 200 ML IV NR (15:00)
[2018-03-10 16:00] VITALS: BP 117/60
[2018-03-10 17:06] LABS: T4 FREE 1.17 ng/dL (0.76-1.46)
[2018-03-10 20:00] VITALS: BP 150/59
[2018-03-11] VITALS: BP 131/56
[2018-03-11 04:00] VITALS: BP_SYST 133; BP_SYST 147; BP_DIAS 59; BP_DIAS 63
[2018-03-11] MEDS: BLOOD SUGAR DIAGNOSTIC STRIP TEST SCH ×4 (05:48→21:33)
[2018-03-11] MEDS: PIPERACILLIN/TAZ 2.25G PREMIX 50 ML IV SCH ×3 (05:56→22:36)
[2018-03-11 08:00] VITALS: BP_SYST 129; BP_SYST 130; BP_DIAS 57; BP_DIAS 63
[2018-03-11] MEDS: SEVELAMER CARBONATE 800 MG TABLET PO SCH ×3 (10:07→18:10)
[2018-03-11] MEDS: NIFEDIPINE XL 60MG TAB PO SCH (10:08)
[2018-03-11] MEDS: LIPASE/PROTEASE/AMYLASE 4,200/14,200/24,600 UNITS CAP DR PO SCH ×3 (10:08→18:10)
[2018-03-11] MEDS: ACETAMINOPHEN 325MG TABLET PO PRN (10:09)
[2018-03-11] MEDS: INSULIN LISPRO 100 UNITS/ML SUBCUT SCH ×3 (10:13→19:06)
[2018-03-11 12:00] VITALS: BP 108/48
[2018-03-11 14:20] LABS: HEMATOCRIT. 40.1 % (36.0-48.0); MEAN CORPUSCULAR HEMOGLOBIN 28.2 pg (28.0-32.0); MEAN CORPUSCULAR VOLUME 87.3 fL (81.0-99.0); PLATELET 93 x1000/uL (130-400); RED BLOOD CELL COUNT 4.59 mill/uL (4.2-5.4); RED CELL DISTRIBUTION WIDTH 20.7 % (11.6-14.6)
[2018-03-11] MEDS: HYDROMORPHONE HCL/PF 2MG/ML CPJ IV PRN ×2 (14:44→22:36)
[2018-03-11 16:00] VITALS: BP 139/89
[2018-03-11 17:25] LABS: PLATELET ESTIMATE DECREASED
[2018-03-11 20:00] VITALS: BP 110/59
[2018-03-12] VITALS: BP 121/54
[2018-03-12] MEDS: CEFTRIAXONE 1 G PREMIX 50 ML IV SCH (02:51)
[2018-03-12 04:00] VITALS: BP 118/77
[2018-03-12] MEDS: METRONIDAZOLE 250MG TABLET PO SCH ×3 (06:00→21:10)
[2018-03-12 07:24] LABS: HEMOGLOBIN. 12.9 g/dL (12.0-16.0); MEAN CORPUSCULAR HEMOGLOBIN 27.8 pg (28.0-32.0); MEAN CORPUSCULAR VOLUME 86.2 fL (81.0-99.0); MEAN PLATELET VOLUME 10.3 fl (7.4-10.4); PLATELET 97 x1000/uL (130-400); RED BLOOD CELL COUNT 4.64 mill/uL (4.2-5.4); RED CELL DISTRIBUTION WIDTH 20.4 % (11.6-14.6)
[2018-03-12] MEDS: BLOOD SUGAR DIAGNOSTIC STRIP TEST SCH ×4 (07:32→21:10)
[2018-03-12] MEDS: INSULIN LISPRO 100 UNITS/ML SUBCUT SCH ×3 (07:37→17:40)
[2018-03-12 07:52] LABS: BASOPHILS % 0.2 % (0.0-2.0); EOSINOPHILS % 0.2 % (0.0-5.0); LYMPHOCYTES % 2.9 % (20.0-50.0); MONOCYTES % 8.8 % (2.0-8.0); NEUTROPHILS % 87.9 % (40.0-76.0)
[2018-03-12 08:00] VITALS: BP_SYST 118; BP_SYST 131; BP_DIAS 48; BP_DIAS 53
[2018-03-12] MEDS: SEVELAMER CARBONATE 800 MG TABLET PO SCH ×3 (08:10→18:10)
[2018-03-12] MEDS: LIPASE/PROTEASE/AMYLASE 4,200/14,200/24,600 UNITS CAP DR PO SCH ×3 (08:10→18:10)
[2018-03-12] MEDS: FOLIC ACID/VITAMIN B COMP W-C TABLET PO SCH (09:00)
[2018-03-12] MEDS: NIFEDIPINE XL 60MG TAB PO SCH (09:00)
[2018-03-12] MEDS ORDERED: LIDOCAINE HCL 1% 20ML VIAL (Pyxis) INJ ONE (11:12)
[2018-03-12 13:30] VITALS: BP 138/48
[2018-03-12] MEDS: PANTOPRAZOLE SODIUM 40 MG/VIAL IV SCH (14:00)
[2018-03-12 16:00] VITALS: BP 149/53
[2018-03-12 16:29] LABS: PLATELET ESTIMATE DECREASED
[2018-03-12 20:00] VITALS: BP_SYST 115; BP_SYST 132; BP_DIAS 55; BP_DIAS 81
[2018-03-13] VITALS (15 sets, daily range): BP systolic 122–188; BP diastolic 57–85
[2018-03-13] MEDS: CEFTRIAXONE 1 G PREMIX 50 ML IV SCH (00:21)
[2018-03-13] MEDS: METRONIDAZOLE 250MG TABLET PO SCH ×3 (05:23→22:04)
[2018-03-13] MEDS: BLOOD SUGAR DIAGNOSTIC STRIP TEST SCH ×4 (05:41→21:32)
[2018-03-13] MEDS: INSULIN LISPRO 100 UNITS/ML SUBCUT SCH ×3 (07:40→17:37)
[2018-03-13 07:48] LABS: HEMATOCRIT. 35.3 % (36.0-48.0); HEMOGLOBIN. 11.6 g/dL (12.0-16.0); MEAN CORPUSCULAR HEMOGLOBIN 28.1 pg (28.0-32.0); MEAN CORPUSCULAR VOLUME 85.9 fL (81.0-99.0); MEAN PLATELET VOLUME 10.3 fl (7.4-10.4); PLATELET 115 x1000/uL (130-400); RED BLOOD CELL COUNT 4.12 mill/uL (4.2-5.4); RED CELL DISTRIBUTION WIDTH 20.5 % (11.6-14.6)
[2018-03-13 08:39] LABS: INR 1.1; PROTHROMBIN TIME 11.2 sec (9.1-11.1)
[2018-03-13] MEDS: LIPASE/PROTEASE/AMYLASE 4,200/14,200/24,600 UNITS CAP DR PO SCH ×3 (08:44→17:51)
[2018-03-13] MEDS: FOLIC ACID/VITAMIN B COMP W-C TABLET PO SCH (08:44)
[2018-03-13] MEDS: PANTOPRAZOLE SODIUM 40 MG/VIAL IV SCH (08:45)
[2018-03-13] MEDS: SEVELAMER CARBONATE 800 MG TABLET PO SCH ×3 (08:45→17:51)
[2018-03-13] MEDS: NIFEDIPINE XL 60MG TAB PO SCH (08:47)
[2018-03-13 12:09] LABS: PLATELET ESTIMATE SLIGHTLY DECREASED
[2018-03-13] MEDS ORDERED: SODIUM BICARBONATE 4% (2.4MEQ) 5ML VIAL IV ONE (12:56)
[2018-03-13] MEDS ORDERED: LIDOCAINE HCL 1% 20ML VIAL (Pyxis) INJ ONE (12:57)
[2018-03-13] MEDS ORDERED: IOHEXOL-300 50 ML BOTTLE IV ONE (12:57)
[2018-03-13] MEDS ORDERED: FENTANYL CITRATE/PF 50MCG/ML 2ML VIAL ONE (13:58)
[2018-03-13] MEDS ORDERED: FENTANYL CITRATE/PF 50MCG/ML 2ML VIAL IV ONE (15:00)
[2018-03-14] VITALS: BP 159/73
[2018-03-14] MEDS: CEFTRIAXONE 1 G PREMIX 50 ML IV SCH (00:28)
[2018-03-14 04:00] VITALS: BP_SYST 144; BP_SYST 168; BP_DIAS 68; BP_DIAS 72
[2018-03-14] MEDS: BLOOD SUGAR DIAGNOSTIC STRIP TEST SCH ×4 (05:42→21:35)
[2018-03-14] MEDS: METRONIDAZOLE 250MG TABLET PO SCH ×3 (05:47→21:55)
[2018-03-14] MEDS: INSULIN LISPRO 100 UNITS/ML SUBCUT SCH ×3 (07:01→16:41)
[2018-03-14 08:00] VITALS: BP 181/75
[2018-03-14 08:12] LABS: HEMATOCRIT. 34.8 % (36.0-48.0); HEMOGLOBIN. 11.5 g/dL (12.0-16.0); MEAN CORPUSCULAR HEMOGLOBIN 28.3 pg (28.0-32.0); MEAN CORPUSCULAR VOLUME 85.8 fL (81.0-99.0); PLATELET 128 x1000/uL (130-400); RED BLOOD CELL COUNT 4.06 mill/uL (4.2-5.4); RED CELL DISTRIBUTION WIDTH 20.7 % (11.6-14.6)
[2018-03-14] MEDS: NIFEDIPINE XL 60MG TAB PO SCH (08:49)
[2018-03-14] MEDS: SEVELAMER CARBONATE 800 MG TABLET PO SCH ×3 (08:49→16:26)
[2018-03-14] MEDS: LIPASE/PROTEASE/AMYLASE 4,200/14,200/24,600 UNITS CAP DR PO SCH ×3 (08:49→16:28)
[2018-03-14] MEDS: FOLIC ACID/VITAMIN B COMP W-C TABLET PO SCH (08:49)
[2018-03-14] MEDS: PANTOPRAZOLE SODIUM 40 MG/VIAL IV SCH (08:52)
[2018-03-14 12:00] VITALS: BP 171/76
[2018-03-14 13:52] LABS: PLATELET ESTIMATE NORMAL
[2018-03-14] MEDS ORDERED: CALCIUM GLUCONATE 2,000 MG in DEXT 5% WATER 80 ML IV ONE (14:45)
[2018-03-14 16:00] VITALS: BP 109/54
[2018-03-14 20:00] VITALS: BP 106/48
[2018-03-15] VITALS (19 sets, daily range): BP systolic 110–160; BP diastolic 36–90
[2018-03-15] MEDS: CEFTRIAXONE 1 G PREMIX 50 ML IV SCH (02:40)
[2018-03-15] MEDS: METRONIDAZOLE 250MG TABLET PO SCH ×2 (06:00→14:00)
[2018-03-15] MEDS: BLOOD SUGAR DIAGNOSTIC STRIP TEST SCH ×3 (06:03→17:40)
[2018-03-15] MEDS: INSULIN LISPRO 100 UNITS/ML SUBCUT SCH ×3 (07:40→17:40)
[2018-03-15 07:50] LABS: INR 1.1; PARTIAL THROMBOPLASTIN TIME 30.3 sec (23.4-31.0)
[2018-03-15] MEDS ORDERED: LIDOCAINE HCL 1% 20ML VIAL (Pyxis) INJ ONE ×2 (08:06→14:30)
[2018-03-15] MEDS ORDERED: SODIUM BICARBONATE 4% (2.4MEQ) 5ML VIAL IV ONE (08:06)
[2018-03-15] MEDS: LIPASE/PROTEASE/AMYLASE 4,200/14,200/24,600 UNITS CAP DR PO SCH ×3 (08:10→18:10)
[2018-03-15] MEDS: SEVELAMER CARBONATE 800 MG TABLET PO SCH ×3 (08:10→18:10)
[2018-03-15] MEDS ORDERED: LIDOCAINE HCL/EPINEPHRINE 1%-EPI 1:100,000 20 ML VIAL ONE (08:22)
[2018-03-15] MEDS ORDERED: FENTANYL CITRATE/PF 50MCG/ML 2ML VIAL ONE (08:31)
[2018-03-15] MEDS: PANTOPRAZOLE SODIUM 40 MG/VIAL IV SCH (09:00)
[2018-03-15] MEDS: NIFEDIPINE XL 60MG TAB PO SCH (09:00)
[2018-03-15] MEDS: FOLIC ACID/VITAMIN B COMP W-C TABLET PO SCH (09:00)
[2018-03-15] MEDS ORDERED: MIDAZOLAM HCL 2 MG/2 ML VIAL ONE (09:13)
[2018-03-15] MEDS ORDERED: IOHEXOL-300 50 ML BOTTLE IV ONE (09:19)
[2018-03-15] MEDS ORDERED: FENTANYL CITRATE/PF 50MCG/ML 2ML VIAL IV ONE (09:45)
[2018-03-15] MEDS ORDERED: MIDAZOLAM HCL 2 MG/2 ML VIAL IV ONE (09:45)
[2018-03-15 09:59] LABS: BASOPHILS % 0.3 % (0.0-2.0); EOSINOPHILS % 2.1 % (0.0-5.0); HEMOGLOBIN. 11.5 g/dL (12.0-16.0); LYMPHOCYTES % 10.7 % (20.0-50.0); MEAN CORPUSCULAR HEMOGLOBIN 27.6 pg (28.0-32.0); MEAN CORPUSCULAR VOLUME 86.5 fL (81.0-99.0); MEAN PLATELET VOLUME 9.7 fl (7.4-10.4); MONOCYTES % 10.6 % (2.0-8.0); NEUTROPHILS % 76.3 % (40.0-76.0); PLATELET 144 x1000/uL (130-400); RED BLOOD CELL COUNT 4.16 mill/uL (4.2-5.4); RED CELL DISTRIBUTION WIDTH 20.4 % (11.6-14.6)
[2018-03-15] MEDS ORDERED: ERGOCALCIFEROL 50000UNITS CAPSULE PO NR (11:45)
[2018-03-15] MEDS ORDERED: CEFTRIAXONE 1 G PREMIX 50 ML IV NR (19:00)
[2018-03-15] MEDS: ACETAMINOPHEN 325MG TABLET PO PRN (19:49)
== END 2018-03-15 21:35 | disposition home health service (06) | DRG 314 ==
LOC: ER 04:41 → 7WST 06:02 → EDBEDREQTM 06:13 → EDBEDREQSVC 06:13 → EDBEDREQ 06:13 → ENRESERV 14:38 → 7WST 15:59
PROVIDERS: ADMIT Internal Medicine Endocrinology, Diabetes & Metabolism; ATTEND Internal Medicine Endocrinology, Diabetes & Metabolism
PROC: 5A1D70Z Performance of Urinary Filtration, Intermittent, Less than 6 Hours Per Day (ICD-10-PCS; 2018-03-08)
PROC: 05PYX3Z Removal of Infusion Device from Upper Vein, External Approach (ICD-10-PCS; 2018-03-09)
PROC: 5A1D70Z Performance of Urinary Filtration, Intermittent, Less than 6 Hours Per Day (ICD-10-PCS; principal; 2018-03-12)
PROC: 06HY33Z Insertion of Infusion Device into Lower Vein, Percutaneous Approach (ICD-10-PCS; 2018-03-12)
PROC: 0F9430Z Drainage of Gallbladder with Drainage Device, Percutaneous Approach (ICD-10-PCS; 2018-03-13)
PROC: 0JH63XZ Insertion of Tunneled Vascular Access Device into Chest Subcutaneous Tissue and Fascia, Percutaneous Approach (ICD-10-PCS; 2018-03-15)
PROC: 02HV33Z Insertion of Infusion Device into Superior Vena Cava, Percutaneous Approach (ICD-10-PCS; 2018-03-15)
PROC: B518ZZA Fluoroscopy of Superior Vena Cava, Guidance (ICD-10-PCS; 2018-03-15)
PROC: B548ZZA Ultrasonography of Superior Vena Cava, Guidance (ICD-10-PCS; 2018-03-15)
PROC: 02HV33Z Insertion of Infusion Device into Superior Vena Cava, Percutaneous Approach (ICD-10-PCS; 2018-03-15)
PROC: B518ZZA Fluoroscopy of Superior Vena Cava, Guidance (ICD-10-PCS; 2018-03-15)
PROC: B548ZZA Ultrasonography of Superior Vena Cava, Guidance (ICD-10-PCS; 2018-03-15)
DX: T82.7XXA Infection and inflammatory reaction due to other cardiac and vascular devices, implants and grafts, initial encounter (principal); E43 Unspecified severe protein-calorie malnutrition; N18.6 End stage renal disease; G92 Toxic encephalopathy; A41.59 Other Gram-negative sepsis; N39.0 Urinary tract infection, site not specified; E87.1 Hypo-osmolality and hyponatremia; I13.2 Hypertensive heart and chronic kidney disease with heart failure and with stage 5 chronic kidney disease, or end stage renal disease; G95.20 Unspecified cord compression; K83.09 Other cholangitis; K80.00 Calculus of gallbladder with acute cholecystitis without obstruction; B96.1 Klebsiella pneumoniae [K. pneumoniae] as the cause of diseases classified elsewhere; E83.51 Hypocalcemia; D64.9 Anemia, unspecified; Z86.73 Personal history of transient ischemic attack (TIA), and cerebral infarction without residual deficits; I27.20 Pulmonary hypertension, unspecified; I25.10 Atherosclerotic heart disease of native coronary artery without angina pectoris; J44.9 Chronic obstructive pulmonary disease, unspecified; I50.9 Heart failure, unspecified; E11.22 Type 2 diabetes mellitus with diabetic chronic kidney disease; E11.51 Type 2 diabetes mellitus with diabetic peripheral angiopathy without gangrene; E11.42 Type 2 diabetes mellitus with diabetic polyneuropathy; E11.319 Type 2 diabetes mellitus with unspecified diabetic retinopathy without macular edema; K21.9 Gastro-esophageal reflux disease without esophagitis; K44.9 Diaphragmatic hernia without obstruction or gangrene; K22.2 Esophageal obstruction; I95.1 Orthostatic hypotension; I48.0 Paroxysmal atrial fibrillation; E78.5 Hyperlipidemia, unspecified; E78.00 Pure hypercholesterolemia, unspecified; M15.9 Polyosteoarthritis, unspecified; Y83.8 Other surgical procedures as the cause of abnormal reaction of the patient, or of later complication, without mention of misadventure at the time of the procedure; K59.00 Constipation, unspecified; M48.061 Spinal stenosis, lumbar region without neurogenic claudication; E11.21 Type 2 diabetes mellitus with diabetic nephropathy; K86.89 Other specified diseases of pancreas; D69.6 Thrombocytopenia, unspecified; M50.80 Other cervical disc disorders, unspecified cervical region; M48.02 Spinal stenosis, cervical region; D47.2 Monoclonal gammopathy; H54.7 Unspecified visual loss; M75.92 Shoulder lesion, unspecified, left shoulder; R00.1 Bradycardia, unspecified; M81.0 Age-related osteoporosis without current pathological fracture; Z90.710 Acquired absence of both cervix and uterus; Z99.2 Dependence on renal dialysis; Z87.19 Personal history of other diseases of the digestive system; Z82.49 Family history of ischemic heart disease and other diseases of the circulatory system; Z82.3 Family history of stroke; Z83.3 Family history of diabetes mellitus; Z80.1 Family history of malignant neoplasm of trachea, bronchus and lung; Z80.3 Family history of malignant neoplasm of breast; Z68.25 Body mass index [BMI] 25.0-25.9, adult; Z91.012 Allergy to eggs; Z88.5 Allergy status to narcotic agent; Z91.013 Allergy to seafood; Z88.8 Allergy status to other drugs, medicaments and biological substances; Z91.018 Allergy to other foods; Z79.899 Other long term (current) drug therapy; Y92.89 Other specified places as the place of occurrence of the external cause; Z90.79 Acquired absence of other genital organ(s); Z90.722 Acquired absence of ovaries, bilateral; Z86.79 Personal history of other diseases of the circulatory system; Z86.010 Personal history of colon polyps
CPT/HCPCS: 36415; 36558; 36569; 36589; 47490; 71045; 74181; 76700; 76937; 77001; 80048; 80076; 80202; 82140; 82248; 82306; 82330; 82962; 83605; 83735; 84100; 84134; 84145; 84439; 84443; 84484; 85007; 85027; 85576; 87070; 87077; 87186; 93005; 96365; 96366; 96367; 96375; 99152; 99153; 99291; A6261; C1725; C1729; C1750; C1752; C1769; C1887; C1893; C9113; J0610; J0696; J1170; J1642; J1644; J1815; J1885; J2250; J2405; J2543; J3010; J3370; J3490; J7030; J7040; J7050; J7060; J7070; L8514; Q9967; G0500

== ENCOUNTER → 2018-04-09 | Day surgery (SDC) | payer MEDICARE, MEDICAID ==
[~2018-04-09] MED LIST changes: +IOHEXOL-300 50 ML BOTTLE IV ONE
== END | disposition home or self-care (01) ==
LOC: ANGIO 13:01
PROVIDERS: ATTEND Surgery
DX: K80.00 Calculus of gallbladder with acute cholecystitis without obstruction (principal); I25.10 Atherosclerotic heart disease of native coronary artery without angina pectoris; J44.9 Chronic obstructive pulmonary disease, unspecified; K21.9 Gastro-esophageal reflux disease without esophagitis; I13.2 Hypertensive heart and chronic kidney disease with heart failure and with stage 5 chronic kidney disease, or end stage renal disease; E11.22 Type 2 diabetes mellitus with diabetic chronic kidney disease; N18.6 End stage renal disease; I50.9 Heart failure, unspecified; E78.5 Hyperlipidemia, unspecified; Z98.890 Other specified postprocedural states; Z79.899 Other long term (current) drug therapy; Z80.3 Family history of malignant neoplasm of breast; Z90.710 Acquired absence of both cervix and uterus; Z90.722 Acquired absence of ovaries, bilateral; Z88.5 Allergy status to narcotic agent; Z91.012 Allergy to eggs; Z91.018 Allergy to other foods
CPT/HCPCS: 47531; Q9967; J7050

== ENCOUNTER 2018-06-24 11:33 | Inpatient (IN) | payer MEDICARE, MEDICAID ==
[~2018-06-24] VITALS: Ht 167.6 cm; Wt 71.9 kg
[~2018-06-24 11:33] MED LIST changes: -IOHEXOL-300 50 ML BOTTLE IV ONE
[2018-06-24] MEDS ORDERED: SODIUM CHLORIDE 0.9% 1000ML BAG (SEPSIS BOLUS) IV ONE (12:45)
[2018-06-24 12:58] LABS: HEMATOCRIT. 48.2 % (36.0-48.0); HEMOGLOBIN. 15.3 g/dL (12.0-16.0); MEAN CORPUSCULAR HEMOGLOBIN 28.1 pg (28.0-32.0); MEAN CORPUSCULAR VOLUME 88.7 fL (81.0-99.0); MEAN PLATELET VOLUME 8.4 fl (7.4-10.4); PLATELET 132 x1000/uL (130-400); RED BLOOD CELL COUNT 5.43 mill/uL (4.2-5.4); RED CELL DISTRIBUTION WIDTH 18.1 % (11.6-14.6)
[2018-06-24 13:05] LABS: CHLORIDE 98 mEq/L (98-107)
[2018-06-24 13:06] LABS: INR 1.3; PROTHROMBIN TIME 12.6 sec (9.1-11.1)
[2018-06-24 13:43] LABS: PLATELET ESTIMATE NORMAL
[2018-06-24] MEDS ORDERED: VANCOMYCIN 1 G PREMIX 200 ML IV ONE (14:00)
[2018-06-24] MEDS ORDERED: PIPERACILLIN/TAZ 3.375G PREMIX 50 ML IV ONE (14:00)
[2018-06-24] MEDS ORDERED: ACETAMINOPHEN 325MG SUPP PR PRN (19:45)
[2018-06-24] MEDS ORDERED: TRAMADOL 50MG TABLET PO PRN (19:45)
[2018-06-24] MEDS: ONDANSETRON HCL 4MG/2ML INJ IV PRN (20:57)
[2018-06-24] MEDS: AMLODIPINE 5MG TABLET PO SCH (20:57)
[2018-06-24] MEDS ORDERED: PIPERACILLIN/TAZ 2.25G PREMIX 50 ML IV SCH (22:00)
[2018-06-24] MEDS: DEXT 5%/0.45% NACL 1000ML 1,000 ML IV SCH (23:30)
[2018-06-24] MEDS ORDERED: PANTOPRAZOLE SODIUM 40 MG/VIAL IV SCH (23:45)
[2018-06-25] MEDS ORDERED: PANTOPRAZOLE SODIUM 40 MG/VIAL IV NR (01:15)
[2018-06-25] MEDS ORDERED: NON FORMULARY PATIENT HOME MED XX SCH (01:15)
[2018-06-25] MEDS: ONDANSETRON HCL 4MG/2ML INJ IV PRN ×2 (04:40→10:43)
[2018-06-25 05:35] LABS: HEMATOCRIT. 46.7 % (36.0-48.0); MEAN CORPUSCULAR HEMOGLOBIN 28.3 pg (28.0-32.0); MEAN CORPUSCULAR VOLUME 88.1 fL (81.0-99.0); PLATELET 99 x1000/uL (130-400); RED CELL DISTRIBUTION WIDTH 18.4 % (11.6-14.6)
[2018-06-25 05:39] LABS: CHLORIDE 99 mEq/L (98-107)
[2018-06-25] MEDS ORDERED: PIPERACILLIN/TAZ 2.25G PREMIX 50 ML IV SCH (06:00)
[2018-06-25 07:06] LABS: PLATELET ESTIMATE DECREASED
[2018-06-25] MEDS: AMLODIPINE 5MG TABLET PO SCH (09:00)
[2018-06-25 17:44] VITALS: BP 151/71
[2018-06-25] MEDS: FOLIC ACID/VITAMIN B COMP W-C TABLET PO SCH ×2 (18:15→18:30)
[2018-06-25] MEDS: SEVELAMER CARBONATE 800 MG TABLET PO SCH ×2 (18:15→18:30)
[2018-06-25 20:00] VITALS: BP_SYST 154; BP_SYST 162; BP_DIAS 62; BP_DIAS 74
[2018-06-25] MEDS: PIPERACILLIN/TAZ 2.25G PREMIX 50 ML IV SCH (21:14)
[2018-06-25] MEDS: BLOOD SUGAR DIAGNOSTIC STRIP TEST SCH (21:15)
[2018-06-25] MEDS: CIPROFLOXACIN 0.3% OPHTH SOLN 2.5ML LEFTEYE SCH (21:15)
[2018-06-25] MEDS: DEXT 5%/0.45% NACL 1000ML 1,000 ML IV SCH (21:16)
[2018-06-25] MEDS ORDERED: VANCOMYCIN 1 G PREMIX 200 ML IV NR (22:00)
[2018-06-26] VITALS: BP 162/62
[2018-06-26 04:00] VITALS: BP 155/68
[2018-06-26] MEDS: BLOOD SUGAR DIAGNOSTIC STRIP TEST SCH ×4 (06:14→21:48)
[2018-06-26 08:00] VITALS: BP 155/64
[2018-06-26] MEDS: PIPERACILLIN/TAZ 2.25G PREMIX 50 ML IV SCH (08:56)
[2018-06-26] MEDS: PANTOPRAZOLE SODIUM 40 MG/VIAL IV SCH (08:57)
[2018-06-26] MEDS: SEVELAMER CARBONATE 800 MG TABLET PO SCH ×3 (08:57→17:19)
[2018-06-26] MEDS: FOLIC ACID/VITAMIN B COMP W-C TABLET PO SCH (08:57)
[2018-06-26] MEDS: AMLODIPINE 5MG TABLET PO SCH (08:58)
[2018-06-26] MEDS: CIPROFLOXACIN 0.3% OPHTH SOLN 2.5ML LEFTEYE SCH ×4 (09:00→21:49)
[2018-06-26 10:50] LABS: HEMATOCRIT. 44.9 % (36.0-48.0); HEMOGLOBIN. 14.2 g/dL (12.0-16.0); MEAN CORPUSCULAR HEMOGLOBIN 27.7 pg (28.0-32.0); MEAN CORPUSCULAR VOLUME 87.8 fL (81.0-99.0); PLATELET 94 x1000/uL (130-400); RED BLOOD CELL COUNT 5.11 mill/uL (4.2-5.4); RED CELL DISTRIBUTION WIDTH 19.1 % (11.6-14.6)
[2018-06-26 11:32] LABS: PLATELET ESTIMATE DECREASED
[2018-06-26] MEDS: CEFAZOLIN 2,000 MG in DEXT 5% WATER 100 ML IV SCH (17:20)
[2018-06-27] VITALS (7 sets, daily range): BP systolic 118–183; BP diastolic 68–81
[2018-06-27] MEDS: DEXT 5%/0.45% NACL 1000ML 1,000 ML IV SCH (06:34)
[2018-06-27] MEDS: BLOOD SUGAR DIAGNOSTIC STRIP TEST SCH ×4 (06:35→21:30)
[2018-06-27] MEDS: CIPROFLOXACIN 0.3% OPHTH SOLN 2.5ML LEFTEYE SCH ×4 (08:51→21:36)
[2018-06-27 10:07] LABS: HEMATOCRIT. 45.3 % (36.0-48.0); HEMOGLOBIN. 14.5 g/dL (12.0-16.0); MEAN CORPUSCULAR VOLUME 87.3 fL (81.0-99.0); PLATELET 81 x1000/uL (130-400); RED BLOOD CELL COUNT 5.19 mill/uL (4.2-5.4); RED CELL DISTRIBUTION WIDTH 18.7 % (11.6-14.6)
[2018-06-27] MEDS: PANTOPRAZOLE SODIUM 40 MG/VIAL IV SCH (10:26)
[2018-06-27 10:28] LABS: PHOSPHORUS 1.9 mg/dL (2.5-4.9)
[2018-06-27] MEDS: AMLODIPINE 5MG TABLET PO SCH (10:29)
[2018-06-27] MEDS: FOLIC ACID/VITAMIN B COMP W-C TABLET PO SCH (10:29)
[2018-06-27] MEDS: SEVELAMER CARBONATE 800 MG TABLET PO SCH ×3 (10:29→17:36)
[2018-06-27 10:33] LABS: PLATELET ESTIMATE DECREASED
[2018-06-27] MEDS: CEFAZOLIN 2,000 MG in DEXT 5% WATER 100 ML IV SCH (17:36)
[2018-06-28] VITALS: BP_SYST 150; BP_SYST 160; BP_DIAS 60; BP_DIAS 86
[2018-06-28 04:00] VITALS: BP 180/84
[2018-06-28] MEDS: BLOOD SUGAR DIAGNOSTIC STRIP TEST SCH ×4 (06:06→21:06)
[2018-06-28] MEDS: AMLODIPINE 5MG TABLET PO SCH ×3 (06:10→23:31)
[2018-06-28] MEDS: CLONIDINE 0.1MG TABLET PO PRN ×4 (06:11→18:52)
[2018-06-28 06:58] LABS: HEMATOCRIT. 41.1 % (36.0-48.0); HEMOGLOBIN. 13.2 g/dL (12.0-16.0); MEAN CORPUSCULAR HEMOGLOBIN 28.1 pg (28.0-32.0); MEAN CORPUSCULAR VOLUME 87.5 fL (81.0-99.0); PLATELET 81 x1000/uL (130-400); RED BLOOD CELL COUNT 4.69 mill/uL (4.2-5.4); RED CELL DISTRIBUTION WIDTH 18.9 % (11.6-14.6)
[2018-06-28 07:02] LABS: CHLORIDE 103 mEq/L (98-107)
[2018-06-28 07:11] LABS: PHOSPHORUS 1.8 mg/dL (2.5-4.9)
[2018-06-28 08:00] VITALS: BP 106/51
[2018-06-28] MEDS: PANTOPRAZOLE SODIUM 40 MG/VIAL IV SCH (11:40)
[2018-06-28] MEDS: FOLIC ACID/VITAMIN B COMP W-C TABLET PO SCH (11:40)
[2018-06-28] MEDS: CIPROFLOXACIN 0.3% OPHTH SOLN 2.5ML LEFTEYE SCH ×4 (11:41→23:32)
[2018-06-28 12:00] VITALS: BP 168/83
[2018-06-28 16:00] VITALS: BP 169/78
[2018-06-28 16:51] LABS: PLATELET ESTIMATE DECREASED
[2018-06-28] MEDS: CEFAZOLIN 2,000 MG in DEXT 5% WATER 100 ML IV SCH (17:09)
[2018-06-28 20:05] VITALS: BP 157/73
[2018-06-28] MEDS ORDERED: NON FORMULARY PATIENT HOME MED XX SCH (21:30)
[2018-06-28] MEDS: SULFACETAMIDE SODIUM 10% OPHTH DROPS 15ML LEFTEYE SCH (23:00)
[2018-06-28] MEDS: CHLORHEXIDINE GLUCONATE 4% EXTERNAL USE TOP SCH (23:31)
[2018-06-28] MEDS: MUPIROCIN 2% OINT 22GM NS SCH (23:32)
[2018-06-28] MEDS: DEXT 5%/0.45% NACL 1000ML 1,000 ML IV SCH ×2 (23:32→23:36)
[2018-06-28] MEDS: CARVEDILOL 3.125 MG TABLET PO SCH (23:53)
[2018-06-29] VITALS: BP 150/60
[2018-06-29] MEDS: SULFACETAMIDE SODIUM 10% OPHTH DROPS 15ML LEFTEYE SCH ×8 (02:00→23:00)
[2018-06-29 04:00] VITALS: BP 152/59
[2018-06-29] MEDS: BLOOD SUGAR DIAGNOSTIC STRIP TEST SCH ×4 (06:55→21:25)
[2018-06-29 08:00] VITALS: BP 158/68
[2018-06-29] MEDS: CIPROFLOXACIN 0.3% OPHTH SOLN 2.5ML LEFTEYE SCH ×4 (10:04→21:18)
[2018-06-29] MEDS: FOLIC ACID/VITAMIN B COMP W-C TABLET PO SCH (10:05)
[2018-06-29] MEDS: PANTOPRAZOLE SODIUM 40 MG/VIAL IV SCH (10:05)
[2018-06-29 12:00] VITALS: BP 152/61
[2018-06-29] MEDS: MUPIROCIN 2% OINT 22GM NS SCH ×2 (14:15→21:19)
[2018-06-29] MEDS: DEXT 5%/0.45% NACL 1000ML 1,000 ML IV SCH (14:18)
[2018-06-29 16:00] VITALS: BP 158/66
[2018-06-29 18:12] LABS: CREATINE KINASE 39 IU/L (26-192)
[2018-06-29 18:13] LABS: CREATINE KINASE MB FRACTION < 1.0 ng/mL (0.5-3.6)
[2018-06-29] MEDS: CEFAZOLIN 2,000 MG in DEXT 5% WATER 100 ML IV SCH (18:40)
[2018-06-29 20:00] VITALS: BP 182/71
[2018-06-29] MEDS: CARVEDILOL 3.125 MG TABLET PO SCH ×2 (21:19→21:21)
[2018-06-29] MEDS: AMLODIPINE 5MG TABLET PO SCH ×2 (21:19→21:21)
[2018-06-30] VITALS (7 sets, daily range): BP systolic 146–170; BP diastolic 64–74
[2018-06-30 01:00] LABS: CREATINE KINASE MB FRACTION 1.1 ng/mL (0.5-3.6)
[2018-06-30] MEDS: SULFACETAMIDE SODIUM 10% OPHTH DROPS 15ML LEFTEYE SCH ×8 (02:00→22:34)
[2018-06-30] MEDS: BLOOD SUGAR DIAGNOSTIC STRIP TEST SCH ×4 (06:02→21:14)
[2018-06-30 07:12] LABS: HEMOGLOBIN. 13.1 g/dL (12.0-16.0); MEAN CORPUSCULAR HEMOGLOBIN 27.7 pg (28.0-32.0); MEAN CORPUSCULAR VOLUME 86.5 fL (81.0-99.0); PLATELET 71 x1000/uL (130-400); RED BLOOD CELL COUNT 4.74 mill/uL (4.2-5.4); RED CELL DISTRIBUTION WIDTH 18.4 % (11.6-14.6)
[2018-06-30 07:44] LABS: CHLORIDE 102 mEq/L (98-107)
[2018-06-30 07:50] LABS: PHOSPHORUS 1.7 mg/dL (2.5-4.9)
[2018-06-30 07:53] LABS: CREATINE KINASE 37 IU/L (26-192)
[2018-06-30 07:55] LABS: CREATINE KINASE MB FRACTION < 1.0 ng/mL (0.5-3.6)
[2018-06-30] MEDS: CIPROFLOXACIN 0.3% OPHTH SOLN 2.5ML LEFTEYE SCH ×4 (08:28→21:13)
[2018-06-30] MEDS: AMLODIPINE 5MG TABLET PO SCH ×2 (08:28→20:10)
[2018-06-30] MEDS: CARVEDILOL 3.125 MG TABLET PO SCH ×2 (08:28→20:10)
[2018-06-30] MEDS: PANTOPRAZOLE SODIUM 40 MG/VIAL IV SCH (08:28)
[2018-06-30] MEDS: MUPIROCIN 2% OINT 22GM NS SCH ×2 (08:29→21:13)
[2018-06-30] MEDS: FOLIC ACID/VITAMIN B COMP W-C TABLET PO SCH (08:32)
[2018-06-30 10:34] LABS: PLATELET ESTIMATE DECREASED
[2018-06-30] MEDS ORDERED: POTASSIUM-SODIUM PHOSPHATE POWDER PACKET PO NR (11:00)
[2018-06-30] MEDS: CLONIDINE 0.1MG TABLET PO PRN (12:53)
[2018-06-30] MEDS: CEFAZOLIN 2,000 MG in DEXT 5% WATER 100 ML IV SCH (16:02)
[2018-07-01] VITALS (7 sets, daily range): BP systolic 138–181; BP diastolic 58–78
[2018-07-01] MEDS: SULFACETAMIDE SODIUM 10% OPHTH DROPS 15ML LEFTEYE SCH ×7 (01:07→21:33)
[2018-07-01] MEDS ORDERED: ALPRAZOLAM 0.25 MG TABLET PO SCH (02:30)
[2018-07-01] MEDS ORDERED: DIPHENHYDRAMINE 25MG CAPSULE PO PRN (02:30)
[2018-07-01] MEDS: DEXT 5%/0.45% NACL 1000ML 1,000 ML IV SCH ×2 (02:34→21:34)
[2018-07-01] MEDS: BLOOD SUGAR DIAGNOSTIC STRIP TEST SCH ×4 (06:03→20:37)
[2018-07-01 06:49] LABS: HEMATOCRIT. 39.9 % (36.0-48.0); HEMOGLOBIN. 12.9 g/dL (12.0-16.0); MEAN CORPUSCULAR VOLUME 86.7 fL (81.0-99.0); PLATELET 79 x1000/uL (130-400); RED CELL DISTRIBUTION WIDTH 17.7 % (11.6-14.6)
[2018-07-01 07:28] LABS: CHLORIDE 100 mEq/L (98-107)
[2018-07-01 07:51] LABS: PHOSPHORUS 3.1 mg/dL (2.5-4.9)
[2018-07-01] MEDS: AMLODIPINE 5MG TABLET PO SCH ×2 (09:00→21:33)
[2018-07-01] MEDS: CARVEDILOL 3.125 MG TABLET PO SCH ×2 (09:00→21:33)
[2018-07-01] MEDS: FOLIC ACID/VITAMIN B COMP W-C TABLET PO SCH (09:00)
[2018-07-01] MEDS: PANTOPRAZOLE SODIUM 40 MG/VIAL IV SCH (11:21)
[2018-07-01] MEDS: CHLORHEXIDINE GLUCONATE 4% EXTERNAL USE TOP SCH (11:21)
[2018-07-01] MEDS: MUPIROCIN 2% OINT 22GM NS SCH ×2 (11:22→21:34)
[2018-07-01] MEDS: CEFAZOLIN 2,000 MG in DEXT 5% WATER 100 ML IV SCH (16:48)
[2018-07-01 18:08] LABS: PLATELET ESTIMATE DECREASED
== END 2018-07-02 00:06 | disposition home or self-care (01) | DRG 871 ==
LOC: ER 11:33 → 8WST 15:23 → EDBEDREQ 15:29 → EDBEDREQSVC 06-25 12:19 → ENRESERV 06-25 14:12
PROVIDERS: ADMIT Internal Medicine Endocrinology, Diabetes & Metabolism; ATTEND Internal Medicine Endocrinology, Diabetes & Metabolism
PROC: 5A1D70Z Performance of Urinary Filtration, Intermittent, Less than 6 Hours Per Day (ICD-10-PCS; principal; 2018-06-26)
PROC: 5A1D70Z Performance of Urinary Filtration, Intermittent, Less than 6 Hours Per Day (ICD-10-PCS; 2018-06-28)
PROC: 5A1D70Z Performance of Urinary Filtration, Intermittent, Less than 6 Hours Per Day (ICD-10-PCS; 2018-06-30)
DX: A41.59 Other Gram-negative sepsis (principal); N18.6 End stage renal disease; K85.10 Biliary acute pancreatitis without necrosis or infection; I12.0 Hypertensive chronic kidney disease with stage 5 chronic kidney disease or end stage renal disease; E46 Unspecified protein-calorie malnutrition; E11.52 Type 2 diabetes mellitus with diabetic peripheral angiopathy with gangrene; E87.1 Hypo-osmolality and hyponatremia; G95.20 Unspecified cord compression; I31.3 Pericardial effusion (noninflammatory); I47.2 Ventricular tachycardia; J90 Pleural effusion, not elsewhere classified; J98.11 Atelectasis; R18.8 Other ascites; K80.21 Calculus of gallbladder without cholecystitis with obstruction; D69.6 Thrombocytopenia, unspecified; E11.42 Type 2 diabetes mellitus with diabetic polyneuropathy; H54.7 Unspecified visual loss; Z99.2 Dependence on renal dialysis; H10.9 Unspecified conjunctivitis; I27.20 Pulmonary hypertension, unspecified; I95.1 Orthostatic hypotension; D47.2 Monoclonal gammopathy; K86.89 Other specified diseases of pancreas; K56.41 Fecal impaction; E11.39 Type 2 diabetes mellitus with other diabetic ophthalmic complication; E11.21 Type 2 diabetes mellitus with diabetic nephropathy; E11.22 Type 2 diabetes mellitus with diabetic chronic kidney disease; D64.9 Anemia, unspecified; E11.319 Type 2 diabetes mellitus with unspecified diabetic retinopathy without macular edema; E78.5 Hyperlipidemia, unspecified; E83.39 Other disorders of phosphorus metabolism; E86.0 Dehydration; F03.90 Unspecified dementia, unspecified severity, without behavioral disturbance, psychotic disturbance, mood disturbance, and anxiety; I25.10 Atherosclerotic heart disease of native coronary artery without angina pectoris; I48.0 Paroxysmal atrial fibrillation; K08.89 Other specified disorders of teeth and supporting structures; K21.9 Gastro-esophageal reflux disease without esophagitis; K22.2 Esophageal obstruction; K44.9 Diaphragmatic hernia without obstruction or gangrene; K52.9 Noninfective gastroenteritis and colitis, unspecified; K76.0 Fatty (change of) liver, not elsewhere classified; J44.9 Chronic obstructive pulmonary disease, unspecified; M15.9 Polyosteoarthritis, unspecified; M48.061 Spinal stenosis, lumbar region without neurogenic claudication; E11.622 Type 2 diabetes mellitus with other skin ulcer; E11.36 Type 2 diabetes mellitus with diabetic cataract; M48.02 Spinal stenosis, cervical region; M75.92 Shoulder lesion, unspecified, left shoulder; N28.1 Cyst of kidney, acquired; Z22.322 Carrier or suspected carrier of Methicillin resistant Staphylococcus aureus; Z80.1 Family history of malignant neoplasm of trachea, bronchus and lung; Z80.3 Family history of malignant neoplasm of breast; Z82.3 Family history of stroke; Z82.49 Family history of ischemic heart disease and other diseases of the circulatory system; Z83.3 Family history of diabetes mellitus; Z86.14 Personal history of Methicillin resistant Staphylococcus aureus infection; Z86.010 Personal history of colon polyps; Z86.73 Personal history of transient ischemic attack (TIA), and cerebral infarction without residual deficits; Z86.79 Personal history of other diseases of the circulatory system; Z87.19 Personal history of other diseases of the digestive system; Z90.710 Acquired absence of both cervix and uterus; Z88.8 Allergy status to other drugs, medicaments and biological substances; Z88.6 Allergy status to analgesic agent; Z91.030 Bee allergy status; Z88.5 Allergy status to narcotic agent; Z91.013 Allergy to seafood
CPT/HCPCS: 36415; 71045; 74176; 74181; 76700; 80048; 80061; 80076; 82550; 82553; 82962; 83036; 83605; 83735; 83880; 84100; 84134; 84145; 84439; 84443; 84484; 85007; 85027; 85379; 87070; 87077; 87106; 87186; 93005; 93306; 93970; 96365; 96366; 96368; 99285; C9113; G0378; J0690; J2405; J2543; J3370; J7030; J7060; Q0163

== ENCOUNTER 2018-08-02 08:03 | Emergency (ER) | payer MEDICARE, MEDICAID ==
[~2018-08-02] VITALS: Ht 162.6 cm; Wt 68.0 kg
[2018-08-02] MEDS ORDERED: LIDOCAINE 1%/EPI 1:100,000 10 ML VIAL IJ ONE (08:30)
[2018-08-02] MEDS ORDERED: BACITRACIN ZINC OINT UDPKT TOP ONE (08:30)
[2018-08-02] MEDS ORDERED: TETANUS, DIPHTHERIA, PERTUSSIS VAC/PF 0.5ML (>7YR OLD) IM ONE (08:30)
[2018-08-02 08:59] LABS: EOSINOPHILS % 1.6 % (0.0-5.0); HEMATOCRIT. 33.7 % (36.0-48.0); HEMOGLOBIN. 10.9 g/dL (12.0-16.0); LYMPHOCYTES % 10.1 % (20.0-50.0); MEAN CORPUSCULAR HEMOGLOBIN 28.2 pg (28.0-32.0); MEAN CORPUSCULAR VOLUME 87.2 fL (81.0-99.0); MEAN PLATELET VOLUME 7.8 fl (7.4-10.4); MONOCYTES % 9.3 % (2.0-8.0); PLATELET 167 x1000/uL (130-400); RED BLOOD CELL COUNT 3.87 mill/uL (4.2-5.4); RED CELL DISTRIBUTION WIDTH 21.1 % (11.6-14.6)
[2018-08-02 09:06] LABS: INR 1.1
[2018-08-02 09:12] LABS: PHOSPHORUS 1.5 mg/dL (2.5-4.9)
[2018-08-02] MEDS ORDERED: LIDOCAINE HCL/EPINEPHRINE 1%-EPI 1:100,000 20 ML VIAL MC NR (09:15)
[2018-08-02 11:06] VITALS: BP 144/58
== END 2018-08-02 11:08 | disposition home or self-care (01) ==
LOC: ER 08:03
DX: S01.111A Laceration without foreign body of right eyelid and periocular area, initial encounter (principal); S09.8XXA Other specified injuries of head, initial encounter; I12.0 Hypertensive chronic kidney disease with stage 5 chronic kidney disease or end stage renal disease; N18.6 End stage renal disease; E87.8 Other disorders of electrolyte and fluid balance, not elsewhere classified; W18.39XA Other fall on same level, initial encounter; Y93.89 Activity, other specified; Y92.89 Other specified places as the place of occurrence of the external cause; Y99.8 Other external cause status; Z99.2 Dependence on renal dialysis; Z86.73 Personal history of transient ischemic attack (TIA), and cerebral infarction without residual deficits; Z79.899 Other long term (current) drug therapy; Z91.013 Allergy to seafood; Z88.7 Allergy status to serum and vaccine
CPT/HCPCS: 12013; 36415; 70450; 70486; 71045; 72125; 72170; 80048; 82962; 83735; 84100; 84484; 85025; 85610; 85730; 90471; 90715; 93005; 99284; J3490

== ENCOUNTER 2018-08-18 11:39 | Inpatient (IN) | payer MEDICARE, MEDICAID ==
[~2018-08-18] VITALS: Ht 162.6 cm; Wt 68.0 kg
[2018-08-18] MEDS ORDERED: SODIUM CHLORIDE 0.9% 1,000 ML IV ONE (12:21)
[2018-08-18 13:13] LABS: BASOPHILS % 0.6 % (0.0-2.0); EOSINOPHILS % 1.1 % (0.0-5.0); HEMATOCRIT. 34.5 % (36.0-48.0); HEMOGLOBIN. 11.2 g/dL (12.0-16.0); LYMPHOCYTES % 7.4 % (20.0-50.0); MEAN CORPUSCULAR HEMOGLOBIN 29.6 pg (28.0-32.0); MEAN CORPUSCULAR VOLUME 91.3 fL (81.0-99.0); MEAN PLATELET VOLUME 8.2 fl (7.4-10.4); MONOCYTES % 7.8 % (2.0-8.0); NEUTROPHILS % 83.1 % (40.0-76.0); PLATELET 208 x1000/uL (130-400); RED BLOOD CELL COUNT 3.78 mill/uL (4.2-5.4); RED CELL DISTRIBUTION WIDTH 21.4 % (11.6-14.6)
[2018-08-18 13:20] LABS: CHLORIDE 100 mEq/L (98-107)
[2018-08-18 13:21] LABS: PROTHROMBIN TIME 10.7 sec (9.6-11.0)
[2018-08-18 13:24] LABS: ETHANOL BLOOD < 10 mg/dL
[2018-08-18] MEDS ORDERED: POTASSIUM CHLORIDE INJ 30 MEQ in DEXT 5%/0.9% NACL 1,000 ML IV ONE (13:30)
[2018-08-18 14:57] LABS: CLARITY URINE TURBID (CLEAR); KETONES URINE TRACE (NEGATIVE); LEUKOCYTE ESTERASE URINE 3+ (NEGATIVE); NITRITE URINE POSITIVE (NEGATIVE); OCCULT BLOOD URINE 3+ (NEGATIVE); PH URINE 6.5 (4.5-8.0); PROTEIN URINE 2+ (NEGATIVE); SPECIFIC GRAVITY URINE 1.018 (1.005-1.030)
[2018-08-18 14:58] LABS: COLOR URINE BROWN (YELLOW)
[2018-08-18] MEDS ORDERED: CEFTRIAXONE 1 G PREMIX 50 ML IV ONE (15:15)
[2018-08-18 15:16] LABS: *AMPHETAMINES SCREEN URINE NEGATIVE (NEGATIVE); *BARBITURATES SCREEN URINE NEGATIVE (NEGATIVE)
[2018-08-18 15:17] LABS: *BENZODIAZEPINES SCREEN URINE NEGATIVE (NEGATIVE); *COCAINE SCREEN URINE NEGATIVE (NEGATIVE); CANNABINOID URINE SCREEN NEGATIVE (NEGATIVE); METHADONE URINE SCREEN NEGATIVE (NEGATIVE); OPIATES URINE SCREEN NEGATIVE (NEGATIVE); PHENCYCLIDINE URINE SCREEN NEGATIVE (NEGATIVE)
[2018-08-18 17:30] VITALS: BP 134/72
[2018-08-18] MEDS ORDERED: NIFE60TA64 PO (18:05)
[2018-08-18] MEDS ORDERED: CLON-457 PO (18:05)
[2018-08-18] MEDS ORDERED: ALPR0.25 PO (18:05)
[2018-08-18] MEDS ORDERED: EZET1TAB PO (18:08)
[2018-08-18] MEDS ORDERED: CEPH500C2 PO (18:08)
[2018-08-18] MEDS ORDERED: TRAMADOL 50MG TABLET PO PRN (19:45)
[2018-08-18 19:56] VITALS: BP 134/72
[2018-08-18] MEDS: BLOOD SUGAR DIAGNOSTIC STRIP TEST SCH (21:00)
[2018-08-18] MEDS: CARVEDILOL 3.125 MG TABLET PO SCH (21:16)
[2018-08-18] MEDS ORDERED: VANCOMYCIN 1250MG in DEXTROSE 5% WATER 250ML IV NR (22:30)
[2018-08-18] MEDS: PIPERACILLIN/TAZ 2.25G PREMIX 50 ML IV SCH (23:01)
[2018-08-19 00:05] VITALS: BP 104/52
[2018-08-19 04:00] VITALS: BP 146/56
[2018-08-19] MEDS: PIPERACILLIN/TAZ 2.25G PREMIX 50 ML IV SCH ×2 (05:31→14:17)
[2018-08-19 06:56] LABS: HEMOGLOBIN. 10.4 g/dL (12.0-16.0); MEAN CORPUSCULAR HEMOGLOBIN 29.7 pg (28.0-32.0); MEAN CORPUSCULAR VOLUME 91.3 fL (81.0-99.0); MEAN PLATELET VOLUME 8.3 fl (7.4-10.4); PLATELET 191 x1000/uL (130-400); RED CELL DISTRIBUTION WIDTH 21.1 % (11.6-14.6)
[2018-08-19] MEDS: BLOOD SUGAR DIAGNOSTIC STRIP TEST SCH ×4 (07:40→21:49)
[2018-08-19 08:00] VITALS: BP 100/37
[2018-08-19 08:06] LABS: VITAMIN B12 SERUM > 2000.0 pg/mL (211-911)
[2018-08-19 08:37] LABS: T4 FREE 1.08 ng/dL (0.76-1.46)
[2018-08-19] MEDS: CARVEDILOL 3.125 MG TABLET PO SCH ×2 (09:00→21:00)
[2018-08-19] MEDS: NIFEDIPINE XL 60MG TAB PO SCH (09:00)
[2018-08-19] MEDS: FOLIC ACID/VITAMIN B COMP W-C TABLET PO SCH (09:55)
[2018-08-19 10:17] LABS: PLATELET ESTIMATE NORMAL
[2018-08-19 12:00] VITALS: BP 129/57
[2018-08-19] MEDS: DEXT 5%/0.45% NACL 1000ML 1,000 ML IV SCH (13:02)
[2018-08-19 16:00] VITALS: BP 109/55
[2018-08-19 20:00] VITALS: BP 132/57
[2018-08-20] VITALS: BP 108/53
[2018-08-20] MEDS: PIPERACILLIN/TAZ 2.25G PREMIX 50 ML IV SCH ×4 (00:29→21:09)
[2018-08-20] MEDS ORDERED: LORAZEPAM 2MG/ML CPJ IV PRN (01:45)
[2018-08-20 04:00] VITALS: BP 144/77
[2018-08-20] MEDS: BLOOD SUGAR DIAGNOSTIC STRIP TEST SCH ×4 (06:42→21:07)
[2018-08-20 06:43] LABS: HEMATOCRIT. 29.8 % (36.0-48.0); MEAN CORPUSCULAR HEMOGLOBIN 30.4 pg (28.0-32.0); MEAN CORPUSCULAR VOLUME 90.8 fL (81.0-99.0); MEAN PLATELET VOLUME 8.8 fl (7.4-10.4); PLATELET 147 x1000/uL (130-400); RED BLOOD CELL COUNT 3.28 mill/uL (4.2-5.4); RED CELL DISTRIBUTION WIDTH 21.8 % (11.6-14.6)
[2018-08-20 08:00] VITALS: BP 156/63
[2018-08-20 08:13] LABS: PHOSPHORUS 1.8 mg/dL (2.5-4.9)
[2018-08-20] MEDS: CARVEDILOL 3.125 MG TABLET PO SCH ×2 (08:54→21:00)
[2018-08-20] MEDS: NIFEDIPINE XL 60MG TAB PO SCH (08:54)
[2018-08-20] MEDS: FOLIC ACID/VITAMIN B COMP W-C TABLET PO SCH (08:54)
[2018-08-20] MEDS: DEXT 5%/0.45% NACL 1000ML 1,000 ML IV SCH (08:57)
[2018-08-20] MEDS ORDERED: VANCOMYCIN 1 G PREMIX 200 ML IV NR (11:00)
[2018-08-20 12:00] VITALS: BP 143/65
[2018-08-20] MEDS: POTASSIUM-SODIUM PHOSPHATE POWDER PACKET PO SCH ×2 (12:00→21:00)
[2018-08-20 15:29] LABS: PLATELET ESTIMATE NORMAL
[2018-08-20 16:00] VITALS: BP 121/54
[2018-08-20] MEDS: DIPHENHYDRAMINE 50MG/ML VIAL IV PRN (17:04)
[2018-08-20 20:00] VITALS: BP 135/66
[2018-08-21] VITALS: BP 111/69
[2018-08-21] MEDS: DEXT 5%/0.45% NACL 1000ML 1,000 ML IV SCH ×2 (03:24→21:45)
[2018-08-21 04:00] VITALS: BP 171/76
[2018-08-21] MEDS: PIPERACILLIN/TAZ 2.25G PREMIX 50 ML IV SCH ×3 (06:00→21:40)
[2018-08-21] MEDS: HYDRALAZINE 20MG/ML VIAL IV SCH ×3 (06:52→18:11)
[2018-08-21] MEDS: BLOOD SUGAR DIAGNOSTIC STRIP TEST SCH ×4 (06:58→21:37)
[2018-08-21 07:09] LABS: HEMATOCRIT. 30.5 % (36.0-48.0); HEMOGLOBIN. 10.1 g/dL (12.0-16.0); MEAN CORPUSCULAR HEMOGLOBIN 29.9 pg (28.0-32.0); MEAN CORPUSCULAR VOLUME 90.7 fL (81.0-99.0); MEAN PLATELET VOLUME 8.7 fl (7.4-10.4); PLATELET 149 x1000/uL (130-400); RED BLOOD CELL COUNT 3.37 mill/uL (4.2-5.4); RED CELL DISTRIBUTION WIDTH 21.7 % (11.6-14.6)
[2018-08-21 07:52] LABS: PHOSPHORUS 1.7 mg/dL (2.5-4.9)
[2018-08-21 08:00] VITALS: BP 149/61
[2018-08-21] MEDS: NIFEDIPINE XL 60MG TAB PO SCH (09:00)
[2018-08-21] MEDS: CARVEDILOL 3.125 MG TABLET PO SCH ×2 (09:00→21:00)
[2018-08-21] MEDS: POTASSIUM-SODIUM PHOSPHATE POWDER PACKET PO SCH ×2 (09:00→21:00)
[2018-08-21] MEDS: FOLIC ACID/VITAMIN B COMP W-C TABLET PO SCH (09:00)
[2018-08-21] MEDS ORDERED: HEPARIN SODIUM 1,000 UNIT/1ML VIAL IV NR (10:15)
[2018-08-21 10:25] LABS: PLATELET ESTIMATE NORMAL
[2018-08-21 12:00] VITALS: BP 152/63
[2018-08-21] MEDS ORDERED: LIDOCAINE HCL 1% 20ML VIAL (Pyxis) INJ INFIL NR (14:00)
[2018-08-21 20:00] VITALS: BP 147/60
[2018-08-21] MEDS ORDERED: EPOETIN ALFA 4000UNITS/ML VIAL SUBCUT SCH (21:00)
[2018-08-21 21:43] LABS: INR 1.1; PROTHROMBIN TIME 10.8 sec (9.6-11.0)
[2018-08-22] VITALS: BP 165/65
[2018-08-22] MEDS: HYDRALAZINE 20MG/ML VIAL IV SCH ×6 (00:36→23:44)
[2018-08-22 04:00] VITALS: BP_SYST 160; BP_SYST 162; BP_DIAS 71; BP_DIAS 93
[2018-08-22] MEDS: PIPERACILLIN/TAZ 2.25G PREMIX 50 ML IV SCH ×3 (06:06→21:44)
[2018-08-22 06:53] LABS: BASOPHILS % 1.1 % (0.0-2.0); EOSINOPHILS % 2.9 % (0.0-5.0); HEMATOCRIT. 30.8 % (36.0-48.0); HEMOGLOBIN. 10.3 g/dL (12.0-16.0); LYMPHOCYTES % 8.2 % (20.0-50.0); MEAN CORPUSCULAR HEMOGLOBIN 30.3 pg (28.0-32.0); MEAN PLATELET VOLUME 8.5 fl (7.4-10.4); MONOCYTES % 6.5 % (2.0-8.0); NEUTROPHILS % 81.3 % (40.0-76.0); PLATELET 126 x1000/uL (130-400); RED BLOOD CELL COUNT 3.38 mill/uL (4.2-5.4); RED CELL DISTRIBUTION WIDTH 21.4 % (11.6-14.6)
[2018-08-22 07:16] LABS: PHOSPHORUS 1.3 mg/dL (2.5-4.9)
[2018-08-22] MEDS: BLOOD SUGAR DIAGNOSTIC STRIP TEST SCH ×4 (07:44→21:42)
[2018-08-22 08:00] VITALS: BP 137/58
[2018-08-22] MEDS: CARVEDILOL 3.125 MG TABLET PO SCH ×2 (09:00→21:41)
[2018-08-22] MEDS: POTASSIUM-SODIUM PHOSPHATE POWDER PACKET PO SCH ×2 (09:00→21:42)
[2018-08-22] MEDS: FOLIC ACID/VITAMIN B COMP W-C TABLET PO SCH (09:00)
[2018-08-22] MEDS: NIFEDIPINE XL 60MG TAB PO SCH (09:00)
[2018-08-22] MEDS ORDERED: MIDAZOLAM HCL 5 MG/5 ML VIAL ONE (10:42)
[2018-08-22] MEDS ORDERED: FENTANYL CITRATE/PF 50MCG/ML 2ML VIAL ONE (10:42)
[2018-08-22] MEDS ORDERED: MIDAZOLAM HCL 2 MG/2 ML VIAL IV PRN (10:56)
[2018-08-22] MEDS ORDERED: FENTANYL CITRATE/PF 50MCG/ML 2ML VIAL IV PRN (10:57)
[2018-08-22] MEDS ORDERED: BACTERIOSTATIC SODIUM CHLORIDE 0.9% 30ML VIAL IJ ONE (13:43)
[2018-08-22] MEDS: ACETAMINOPHEN 500MG TABLET PO PRN (14:00)
[2018-08-22] MEDS: METOCLOPRAMIDE HCL 10MG/2ML VIAL IV SCH ×3 (14:00→23:41)
[2018-08-22 16:00] VITALS: BP 178/77
[2018-08-22] MEDS: PANTOPRAZOLE SODIUM 40 MG/VIAL IV SCH (16:36)
[2018-08-22] MEDS: SUCRALFATE 1 G/10 ML UDC GT SCH ×2 (17:59→23:41)
[2018-08-22] MEDS ORDERED: VANCOMYCIN 1 G PREMIX 200 ML IV NR (18:00)
[2018-08-22] MEDS ORDERED: SODIUM PHOS,M-BASIC-D-BASIC 20 MM in DEXT 5% WATER 243.3333 ML IV NR (18:30)
[2018-08-22] MEDS ORDERED: CLONIDINE HCL 0.1MG/24HR PATCH TD SCH (18:30)
[2018-08-22 20:00] VITALS: BP 123/67
[2018-08-22] MEDS: AMLODIPINE 5MG TABLET PEG SCH (21:41)
[2018-08-22] MEDS: DEXT 5%/0.45% NACL 1000ML 1,000 ML IV SCH (21:41)
[2018-08-23] VITALS (7 sets, daily range): BP systolic 99–165; BP diastolic 48–69
[2018-08-23] MEDS: DIPHENHYDRAMINE 50MG/ML VIAL IV PRN (00:53)
[2018-08-23] MEDS: PIPERACILLIN/TAZ 2.25G PREMIX 50 ML IV SCH ×3 (05:59→22:00)
[2018-08-23] MEDS: HYDRALAZINE 20MG/ML VIAL IV SCH ×3 (06:00→18:00)
[2018-08-23] MEDS: METOCLOPRAMIDE HCL 10MG/2ML VIAL IV SCH ×3 (06:05→18:00)
[2018-08-23] MEDS: BLOOD SUGAR DIAGNOSTIC STRIP TEST SCH ×4 (06:06→21:56)
[2018-08-23] MEDS: SUCRALFATE 1 G/10 ML UDC GT SCH ×3 (06:07→18:36)
[2018-08-23 06:59] LABS: HEMATOCRIT. 30.2 % (36.0-48.0); MEAN CORPUSCULAR HEMOGLOBIN 30.1 pg (28.0-32.0); MEAN CORPUSCULAR VOLUME 90.8 fL (81.0-99.0); MEAN PLATELET VOLUME 8.8 fl (7.4-10.4); PLATELET 108 x1000/uL (130-400); RED BLOOD CELL COUNT 3.32 mill/uL (4.2-5.4); RED CELL DISTRIBUTION WIDTH 21.1 % (11.6-14.6)
[2018-08-23 07:52] LABS: PHOSPHORUS 3.1 mg/dL (2.5-4.9)
[2018-08-23] MEDS: AMLODIPINE 5MG TABLET PEG SCH (09:00)
[2018-08-23] MEDS: CARVEDILOL 3.125 MG TABLET PO SCH ×2 (09:00→22:00)
[2018-08-23 09:06] LABS: PLATELET ESTIMATE DECREASED
[2018-08-23] MEDS: PANTOPRAZOLE SODIUM 40 MG/VIAL IV SCH (09:48)
[2018-08-23] MEDS: FOLIC ACID/VITAMIN B COMP W-C TABLET PO SCH (09:48)
[2018-08-23] MEDS: POTASSIUM-SODIUM PHOSPHATE POWDER PACKET PO SCH ×2 (09:48→22:00)
[2018-08-23] MEDS: ACETAMINOPHEN 500MG TABLET PO PRN ×2 (10:07→21:18)
[2018-08-23] MEDS ORDERED: TRAMADOL 50MG TABLET PO NR (10:45)
[2018-08-23] MEDS ORDERED: TRAMADOL 50MG TABLET PO PRN ×2 (13:45→22:30)
[2018-08-23] MEDS: DEXT 5%/0.45% NACL 1000ML 1,000 ML IV SCH (17:48)
[2018-08-24] VITALS: BP 109/54
[2018-08-24] MEDS: SUCRALFATE 1 G/10 ML UDC GT SCH ×3 (00:41→13:18)
[2018-08-24] MEDS: METOCLOPRAMIDE HCL 10MG/2ML VIAL IV SCH ×2 (00:41→06:55)
[2018-08-24] MEDS: HYDRALAZINE 20MG/ML VIAL IV SCH ×3 (00:42→13:23)
[2018-08-24 04:15] VITALS: BP 116/70
[2018-08-24] MEDS: PIPERACILLIN/TAZ 2.25G PREMIX 50 ML IV SCH (06:57)
[2018-08-24] MEDS: BLOOD SUGAR DIAGNOSTIC STRIP TEST SCH ×2 (07:52→12:49)
[2018-08-24 08:00] VITALS: BP 167/70
[2018-08-24 08:13] LABS: HEMATOCRIT. 28.8 % (36.0-48.0); HEMOGLOBIN. 9.6 g/dL (12.0-16.0); MEAN CORPUSCULAR HEMOGLOBIN 30.2 pg (28.0-32.0); MEAN CORPUSCULAR VOLUME 90.5 fL (81.0-99.0); MEAN PLATELET VOLUME 8.7 fl (7.4-10.4); PLATELET 92 x1000/uL (130-400); RED BLOOD CELL COUNT 3.18 mill/uL (4.2-5.4)
[2018-08-24] MEDS ORDERED: POTASSIUM CHLORIDE 20MEQ/PACKET PO SCH (09:00)
[2018-08-24] MEDS: FOLIC ACID/VITAMIN B COMP W-C TABLET PO SCH (09:19)
[2018-08-24] MEDS: AMLODIPINE 5MG TABLET PEG SCH (09:20)
[2018-08-24] MEDS: CARVEDILOL 3.125 MG TABLET PO SCH (09:21)
[2018-08-24] MEDS: POTASSIUM-SODIUM PHOSPHATE POWDER PACKET PO SCH (09:21)
[2018-08-24] MEDS: PANTOPRAZOLE SODIUM 40 MG/VIAL IV SCH (09:21)
[2018-08-24 12:00] VITALS: BP 130/55
[2018-08-24 14:02] LABS: PLATELET ESTIMATE SLIGHTLY DECREASED
[2018-08-24 16:00] VITALS: BP 136/63
[2018-08-25] MEDS ORDERED: AMLO5TAB88 MT (22:46)
[2018-08-25] MEDS ORDERED: SUCR1TAB MT (22:46)
[2018-08-25] MEDS ORDERED: OMEP40CA34 MT (22:46)
[2018-08-29] MEDS ORDERED: CLONIDINE HCL 0.1MG/24HR PATCH TD SCH (09:00)
== END 2018-08-24 18:34 | disposition home health service (06) | DRG 264 ==
LOC: ER 11:44 → 7WST 13:17 → ENRESERV 15:52
PROVIDERS: ADMIT Internal Medicine Endocrinology, Diabetes & Metabolism; ATTEND Internal Medicine Endocrinology, Diabetes & Metabolism
PROC: 0JBQ0ZZ Excision of Right Foot Subcutaneous Tissue and Fascia, Open Approach (ICD-10-PCS; 2018-08-21)
PROC: 0DH63UZ Insertion of Feeding Device into Stomach, Percutaneous Approach (ICD-10-PCS; principal; 2018-08-22)
DX: T82.7XXA Infection and inflammatory reaction due to other cardiac and vascular devices, implants and grafts, initial encounter (principal); J18.9 Pneumonia, unspecified organism; G92 Toxic encephalopathy; E43 Unspecified severe protein-calorie malnutrition; N18.6 End stage renal disease; K85.90 Acute pancreatitis without necrosis or infection, unspecified; N39.0 Urinary tract infection, site not specified; G95.20 Unspecified cord compression; I12.0 Hypertensive chronic kidney disease with stage 5 chronic kidney disease or end stage renal disease; K92.2 Gastrointestinal hemorrhage, unspecified; E11.52 Type 2 diabetes mellitus with diabetic peripheral angiopathy with gangrene; J44.0 Chronic obstructive pulmonary disease with (acute) lower respiratory infection; K80.20 Calculus of gallbladder without cholecystitis without obstruction; D47.2 Monoclonal gammopathy; E87.6 Hypokalemia; E55.9 Vitamin D deficiency, unspecified; E83.39 Other disorders of phosphorus metabolism; L89.619 Pressure ulcer of right heel, unspecified stage; D64.9 Anemia, unspecified; D69.6 Thrombocytopenia, unspecified; E11.22 Type 2 diabetes mellitus with diabetic chronic kidney disease; E11.319 Type 2 diabetes mellitus with unspecified diabetic retinopathy without macular edema; E11.42 Type 2 diabetes mellitus with diabetic polyneuropathy; G90.8 Other disorders of autonomic nervous system; E11.621 Type 2 diabetes mellitus with foot ulcer; E78.00 Pure hypercholesterolemia, unspecified; E78.5 Hyperlipidemia, unspecified; F03.90 Unspecified dementia, unspecified severity, without behavioral disturbance, psychotic disturbance, mood disturbance, and anxiety; G89.29 Other chronic pain; M19.90 Unspecified osteoarthritis, unspecified site; H54.7 Unspecified visual loss; I25.10 Atherosclerotic heart disease of native coronary artery without angina pectoris; I27.20 Pulmonary hypertension, unspecified; I48.0 Paroxysmal atrial fibrillation; I95.1 Orthostatic hypotension; K21.9 Gastro-esophageal reflux disease without esophagitis; K31.819 Angiodysplasia of stomach and duodenum without bleeding; K22.2 Esophageal obstruction; K29.60 Other gastritis without bleeding; J44.9 Chronic obstructive pulmonary disease, unspecified; K44.9 Diaphragmatic hernia without obstruction or gangrene; E11.43 Type 2 diabetes mellitus with diabetic autonomic (poly)neuropathy; K86.89 Other specified diseases of pancreas; Y84.1 Kidney dialysis as the cause of abnormal reaction of the patient, or of later complication, without mention of misadventure at the time of the procedure; L29.9 Pruritus, unspecified; M48.02 Spinal stenosis, cervical region; M24.573 Contracture, unspecified ankle; M48.061 Spinal stenosis, lumbar region without neurogenic claudication; R62.7 Adult failure to thrive; Z80.1 Family history of malignant neoplasm of trachea, bronchus and lung; Z80.3 Family history of malignant neoplasm of breast; Z82.3 Family history of stroke; Z83.3 Family history of diabetes mellitus; Z86.010 Personal history of colon polyps; Z86.79 Personal history of other diseases of the circulatory system; Z87.19 Personal history of other diseases of the digestive system; Z90.710 Acquired absence of both cervix and uterus; Z99.2 Dependence on renal dialysis; Z91.013 Allergy to seafood; Z88.5 Allergy status to narcotic agent; Z88.8 Allergy status to other drugs, medicaments and biological substances; Z98.41 Cataract extraction status, right eye; Z98.42 Cataract extraction status, left eye; Z90.722 Acquired absence of ovaries, bilateral; Y92.89 Other specified places as the place of occurrence of the external cause
CPT/HCPCS: 36415; 71045; 73630; 73650; 80048; 80076; 80202; 80305; 80320; 82306; 82533; 82550; 82607; 82962; 83605; 83735; 84100; 84134; 84439; 84443; 84484; 87070; 87077; 87186; 88305; 88312; 88313; 92610; 93005; 93970; 93971; 96374; 96375; 99285; A6261; C9113; J0360; J0696; J0885; J1200; J1644; J2060; J2250; J2543; J2765; J3010; J3370; J3480; J3490; J7030; J7040; J7042; J7050; J7060; G0480

== ENCOUNTER 2018-08-24 21:26 | Inpatient (IN) | payer MEDICARE, MEDICAID ==
[~2018-08-24] VITALS: Ht 157.5 cm; Wt 58.7 kg
[~2018-08-24 21:26] MED LIST changes: +ALPR0.25 PO; -AMLO5TAB4 PO; -CARV3.1242 PO; +CEPH500C2 PO; +CLON-457 PO; +EZET1TAB PO; +NIFE60TA64 PO
[2018-08-24] MEDS ORDERED: SODIUM CHLORIDE 0.9% 1,000 ML IV ONE (22:41)
[2018-08-24 23:49] LABS: CHLORIDE 105 mEq/L (98-107)
[2018-08-25] MEDS ORDERED: DEXTROSE 50% WATER 50ML SYRINGE IV ONE (00:30)
[2018-08-25] MEDS ORDERED: PIPERACILLIN/TAZ 3.375G PREMIX 50 ML IV ONE (01:00)
[2018-08-25 01:02] LABS: HEMATOCRIT. 36.2 % (36.0-48.0); HEMOGLOBIN. 11.7 g/dL (12.0-16.0); MEAN CORPUSCULAR HEMOGLOBIN 29.9 pg (28.0-32.0); MEAN CORPUSCULAR VOLUME 92.1 fL (81.0-99.0); MEAN PLATELET VOLUME 9.4 fl (7.4-10.4); PLATELET 98 x1000/uL (130-400); RED BLOOD CELL COUNT 3.93 mill/uL (4.2-5.4); RED CELL DISTRIBUTION WIDTH 21.9 % (11.6-14.6)
[2018-08-25 01:58] LABS: PLATELET ESTIMATE SLIGHTL
[2018-08-25] MEDS ORDERED: ACETAMINOPHEN 650MG/20.3ML UDC PO PRN (02:30)
[2018-08-25] MEDS ORDERED: TRAMADOL 50MG TABLET PO PRN (02:30)
[2018-08-25] MEDS ORDERED: DIPHENHYDRAMINE 50MG/ML VIAL IV PRN (03:00)
[2018-08-25] MEDS ORDERED: LIDOCAINE HCL 1% 20ML VIAL (Pyxis) INJ ONE (08:17)
[2018-08-25] MEDS ORDERED: PIPERACILLIN/TAZ 2.25G PREMIX 50 ML IV SCH (10:00)
[2018-08-25] MEDS ORDERED: VANCOMYCIN 1 G PREMIX 200 ML IV SCH ×2 (18:30→21:30)
[2018-08-25 18:48] VITALS: BP 131/64
[2018-08-25 20:00] VITALS: BP 125/88
[2018-08-25] MEDS ORDERED: ERGOCALCIFEROL 50000UNITS CAPSULE PO SCH (20:00)
[2018-08-25 21:00] VITALS: BP 125/88
[2018-08-25] MEDS: SUCRALFATE 1 G/10 ML UDC PO SCH (21:17)
[2018-08-25] MEDS: PIPERACILLIN/TAZ 2.25G PREMIX 50 ML IV SCH (21:18)
[2018-08-25] MEDS: NIFEDIPINE XL 60MG TAB PO SCH (21:18)
[2018-08-25] MEDS: BLOOD SUGAR DIAGNOSTIC STRIP TEST SCH (21:19)
[2018-08-25] MEDS: CARVEDILOL 3.125 MG TABLET PO SCH (21:19)
[2018-08-25] MEDS ORDERED: AMLO5TAB88 MT (22:46)
[2018-08-25] MEDS ORDERED: SUCR1TAB MT (22:46)
[2018-08-25] MEDS ORDERED: OMEP40CA34 MT (22:46)
[2018-08-26] VITALS: BP 115/53
[2018-08-26 04:00] VITALS: BP 127/58
[2018-08-26] MEDS: PIPERACILLIN/TAZ 2.25G PREMIX 50 ML IV SCH ×2 (04:27→18:29)
[2018-08-26] MEDS: BLOOD SUGAR DIAGNOSTIC STRIP TEST SCH ×4 (06:12→21:16)
[2018-08-26] MEDS: SUCRALFATE 1 G/10 ML UDC PO SCH ×4 (06:12→21:16)
[2018-08-26 07:10] LABS: HEMATOCRIT. 26.9 % (36.0-48.0); HEMOGLOBIN. 9.2 g/dL (12.0-16.0); MEAN CORPUSCULAR HEMOGLOBIN 30.6 pg (28.0-32.0); MEAN CORPUSCULAR VOLUME 89.6 fL (81.0-99.0); MEAN PLATELET VOLUME 9.4 fl (7.4-10.4); PLATELET 113 x1000/uL (130-400)
[2018-08-26 08:00] VITALS: BP 142/55
[2018-08-26 08:05] LABS: PHOSPHORUS 2.9 mg/dL (2.5-4.9)
[2018-08-26] MEDS: PANTOPRAZOLE SODIUM 40 MG/VIAL IV SCH (08:42)
[2018-08-26] MEDS: ZINC SULFATE 220 MG ( 50 ) CAPSULE PO SCH (08:42)
[2018-08-26] MEDS: FOLIC ACID/VITAMIN B COMP W-C TABLET PO SCH (08:43)
[2018-08-26] MEDS: NIFEDIPINE XL 60MG TAB PO SCH (08:43)
[2018-08-26] MEDS: ASCORBIC ACID 500 MG TABLET PO SCH (08:43)
[2018-08-26] MEDS: CARVEDILOL 3.125 MG TABLET PO SCH ×2 (08:44→21:17)
[2018-08-26 10:10] LABS: PLATELET ESTIMATE DECREASED
[2018-08-26 12:00] VITALS: BP 109/43
[2018-08-26] MEDS ORDERED: HEPARIN SODIUM 1,000 UNIT/1ML VIAL IV NR (14:45)
[2018-08-26 16:00] VITALS: BP 138/53
[2018-08-26] MEDS ORDERED: VANCOMYCIN 500 MG PREMIX 100 ML IV NR (19:00)
[2018-08-26 20:00] VITALS: BP 116/68
[2018-08-27] VITALS: BP 136/70
[2018-08-27 04:00] VITALS: BP 149/76
[2018-08-27] MEDS: PIPERACILLIN/TAZ 2.25G PREMIX 50 ML IV SCH ×2 (05:11→14:55)
[2018-08-27] MEDS: BLOOD SUGAR DIAGNOSTIC STRIP TEST SCH ×3 (06:25→17:10)
[2018-08-27] MEDS: SUCRALFATE 1 G/10 ML UDC PO SCH ×3 (06:25→19:59)
[2018-08-27 07:15] LABS: EOSINOPHILS % 1.8 % (0.0-5.0); HEMOGLOBIN. 9.1 g/dL (12.0-16.0); LYMPHOCYTES % 7.3 % (20.0-50.0); MEAN CORPUSCULAR HEMOGLOBIN 30.2 pg (28.0-32.0); MEAN CORPUSCULAR VOLUME 90.1 fL (81.0-99.0); MEAN PLATELET VOLUME 9.5 fl (7.4-10.4); MONOCYTES % 8.7 % (2.0-8.0); NEUTROPHILS % 81.2 % (40.0-76.0); PLATELET 151 x1000/uL (130-400); RED CELL DISTRIBUTION WIDTH 21.2 % (11.6-14.6)
[2018-08-27 07:27] LABS: PHOSPHORUS 1.8 mg/dL (2.5-4.9)
[2018-08-27] MEDS: PANTOPRAZOLE SODIUM 40 MG/VIAL IV SCH (10:56)
[2018-08-27] MEDS: ZINC SULFATE 220 MG ( 50 ) CAPSULE PO SCH (10:57)
[2018-08-27] MEDS: ASCORBIC ACID 500 MG TABLET PO SCH (10:57)
[2018-08-27] MEDS: FOLIC ACID/VITAMIN B COMP W-C TABLET PO SCH (10:57)
[2018-08-27] MEDS: CARVEDILOL 3.125 MG TABLET PO SCH (10:58)
[2018-08-27] MEDS: NIFEDIPINE XL 60MG TAB PO SCH (10:58)
[2018-08-27] MEDS ORDERED: POTASSIUM-SODIUM PHOSPHATE POWDER PACKET PO NR (14:30)
[2018-08-27 16:00] VITALS: BP 132/71
[2018-08-27] MEDS ORDERED: APIXABAN 2.5 MG TABLET PO SCH (17:00)
[2018-08-27 20:02] VITALS: BP 137/64
== END 2018-08-27 21:00 | DRG 871 ==
LOC: ER 21:42 → 8WST 08-25 01:05 → EDBEDREQTM 08-25 01:10 → EDBEDREQ 08-25 01:10 → EDBEDREQDT 08-25 01:10 → ENRESERV 08-25 17:24
PROVIDERS: ADMIT Internal Medicine Endocrinology, Diabetes & Metabolism; ATTEND Internal Medicine Endocrinology, Diabetes & Metabolism
PROC: 05HY33Z Insertion of Infusion Device into Upper Vein, Percutaneous Approach (ICD-10-PCS; principal; 2018-08-25)
PROC: B54MZZA Ultrasonography of Right Upper Extremity Veins, Guidance (ICD-10-PCS; 2018-08-25)
PROC: 5A1D70Z Performance of Urinary Filtration, Intermittent, Less than 6 Hours Per Day (ICD-10-PCS; 2018-08-25)
DX: A41.9 Sepsis, unspecified organism (principal); G92 Toxic encephalopathy; J69.0 Pneumonitis due to inhalation of food and vomit; E43 Unspecified severe protein-calorie malnutrition; N18.6 End stage renal disease; J18.9 Pneumonia, unspecified organism; E11.52 Type 2 diabetes mellitus with diabetic peripheral angiopathy with gangrene; G95.20 Unspecified cord compression; I12.0 Hypertensive chronic kidney disease with stage 5 chronic kidney disease or end stage renal disease; E87.1 Hypo-osmolality and hyponatremia; J44.0 Chronic obstructive pulmonary disease with (acute) lower respiratory infection; L97.419 Non-pressure chronic ulcer of right heel and midfoot with unspecified severity; N39.0 Urinary tract infection, site not specified; I95.9 Hypotension, unspecified; E86.0 Dehydration; D69.6 Thrombocytopenia, unspecified; E11.42 Type 2 diabetes mellitus with diabetic polyneuropathy; E11.319 Type 2 diabetes mellitus with unspecified diabetic retinopathy without macular edema; E11.22 Type 2 diabetes mellitus with diabetic chronic kidney disease; D47.2 Monoclonal gammopathy; D64.9 Anemia, unspecified; E11.621 Type 2 diabetes mellitus with foot ulcer; E78.00 Pure hypercholesterolemia, unspecified; E78.5 Hyperlipidemia, unspecified; E83.39 Other disorders of phosphorus metabolism; F03.90 Unspecified dementia, unspecified severity, without behavioral disturbance, psychotic disturbance, mood disturbance, and anxiety; G89.29 Other chronic pain; H54.7 Unspecified visual loss; I25.10 Atherosclerotic heart disease of native coronary artery without angina pectoris; I27.20 Pulmonary hypertension, unspecified; I48.0 Paroxysmal atrial fibrillation; I95.1 Orthostatic hypotension; K22.2 Esophageal obstruction; K29.60 Other gastritis without bleeding; K44.9 Diaphragmatic hernia without obstruction or gangrene; K80.20 Calculus of gallbladder without cholecystitis without obstruction; K86.89 Other specified diseases of pancreas; L89.159 Pressure ulcer of sacral region, unspecified stage; M15.9 Polyosteoarthritis, unspecified; M24.573 Contracture, unspecified ankle; Z99.2 Dependence on renal dialysis; M47.812 Spondylosis without myelopathy or radiculopathy, cervical region; M48.02 Spinal stenosis, cervical region; X58.XXXA Exposure to other specified factors, initial encounter; M48.061 Spinal stenosis, lumbar region without neurogenic claudication; S70.02XA Contusion of left hip, initial encounter; Z80.1 Family history of malignant neoplasm of trachea, bronchus and lung; Z80.3 Family history of malignant neoplasm of breast; Z82.3 Family history of stroke; Z83.3 Family history of diabetes mellitus; Z86.010 Personal history of colon polyps; Z86.73 Personal history of transient ischemic attack (TIA), and cerebral infarction without residual deficits; Z86.79 Personal history of other diseases of the circulatory system; Z87.19 Personal history of other diseases of the digestive system; Z87.440 Personal history of urinary (tract) infections; Z90.49 Acquired absence of other specified parts of digestive tract; Z90.710 Acquired absence of both cervix and uterus; Z91.81 History of falling; Z93.1 Gastrostomy status; Y93.89 Activity, other specified; Y92.89 Other specified places as the place of occurrence of the external cause; Y99.8 Other external cause status; Z98.42 Cataract extraction status, left eye; Z98.41 Cataract extraction status, right eye; Z91.013 Allergy to seafood; Z91.012 Allergy to eggs; Z88.8 Allergy status to other drugs, medicaments and biological substances; Z91.041 Radiographic dye allergy status; Z88.5 Allergy status to narcotic agent; Z90.722 Acquired absence of ovaries, bilateral; L89.619 Pressure ulcer of right heel, unspecified stage
CPT/HCPCS: 36415; 36569; 71045; 76937; 80048; 82533; 82962; 83605; 83735; 83880; 84100; 84134; 84484; 87070; 87077; 87186; 92610; 93005; 96361; 96365; 96375; 99285; A6261; C1725; C9113; J1200; J1644; J2543; J3370; J3490; J7030; J7040

== ENCOUNTER 2018-10-09 08:10 | Inpatient (IN) | payer MEDICARE, MEDICAID ==
[~2018-10-09] VITALS: Ht 165.1 cm; Wt 70.3 kg
[2018-10-09] VITALS (27 sets, daily range): BP systolic 78–164; BP diastolic 37–105
[~2018-10-09 08:10] MED LIST changes: +AMLO5TAB88 MT; +OMEP40CA34 MT; +SUCR1TAB MT
[2018-10-09] MEDS ORDERED: SODIUM CHLORIDE 0.9% 1,000 ML IV ONE (08:22)
[2018-10-09] MEDS ORDERED: ETOMIDATE 2MG/ML 10ML VIAL IV ONE ×2 (08:24→08:30)
[2018-10-09] MEDS ORDERED: VECURONIUM BROMIDE 10 MG/VIAL IV ONE ×2 (08:24→09:00)
[2018-10-09] MEDS ORDERED: PIPERACILLIN/TAZ 3.375G PREMIX 50 ML IV ONE (08:30)
[2018-10-09] MEDS ORDERED: MIDAZOLAM HCL 50 MG in DEXTROSE 5% WATER 40 ML IV ONE (08:30)
[2018-10-09] MEDS ORDERED: NOREPINEPHRINE 4 MG in DEXT 5% WATER 246 ML IV ONE (08:45)
[2018-10-09] MEDS ORDERED: NOREPINEPHRINE 4MG/250ML PMX 250 ML IV ONE (08:47)
[2018-10-09 08:48] LABS: HEMATOCRIT. 24.6 % (36.0-48.0); HEMOGLOBIN. 7.8 g/dL (12.0-16.0); MEAN CORPUSCULAR HEMOGLOBIN 29.4 pg (28.0-32.0); MEAN CORPUSCULAR VOLUME 92.6 fL (81.0-99.0); MEAN PLATELET VOLUME 8.6 fl (7.4-10.4); PLATELET 249 x1000/uL (130-400); RED BLOOD CELL COUNT 2.66 mill/uL (4.2-5.4); RED CELL DISTRIBUTION WIDTH 17.5 % (11.6-14.6)
[2018-10-09 08:57] LABS: CHLORIDE 96 mEq/L (98-107); INR 1.3; PARTIAL THROMBOPLASTIN TIME 26.3 sec (23.4-31.0); PROTHROMBIN TIME 13.5 sec (9.6-11.0)
[2018-10-09] MEDS ORDERED: NOREPINEPHRINE 4MG/250ML PMX 250 ML IV PRN (09:00)
[2018-10-09] MEDS ORDERED: SODIUM CHLORIDE 0.9% 1000ML BAG (SEPSIS BOLUS) IV ONE (09:00)
[2018-10-09 09:01] LABS: PHOSPHORUS 2.7 mg/dL (2.5-4.9)
[2018-10-09 09:03] LABS: BG CARBOXYHEMOGLOBIN 0.8 % (0.5-1.5); BG DEOXYHEMOGLOBIN 0.9 % (0.0-5.0); BG FRACTION INSPIRED OXYGEN 100; BG HCO3 ACT 22.5 mmol/L (22.0-26.0); BG METHEMOGLOBIN 0.6 % (0.0-1.5); BG OXYGEN SATURATION 99.1 % (92.0-98.5); BG OXYHEMOGLOBIN 97.7 % (94.0-97.0); BG PCO2 32.3 mmHg (35.0-45.0); BG PH 7.461 (7.350-7.450); BG PO2 156.1 mmHg (75.0-100.0); BG SAMPLE SITE RIGHT RADIAL; BG TIDAL VOLUME(mL) 400 mL; BG TOTAL HEMOGLOBIN 8.1 g/dL (12.0-18.0); BG VENT MODE VENT - A/C; BG VENT RATE 14 set
[2018-10-09 09:40] LABS: PLATELET ESTIMATE NORMAL
[2018-10-09] MEDS ORDERED: VANCOMYCIN 1 G PREMIX 200 ML IV SCH (10:15)
[2018-10-09] MEDS ORDERED: LIDOCAINE HCL 1% 20ML VIAL (Pyxis) INJ ONE (10:17)
[2018-10-09] MEDS: PIPERACILLIN/TAZ 2.25G PREMIX 50 ML IV SCH (16:34)
[2018-10-09] MEDS: FAMOTIDINE 20MG/2ML VIAL IV SCH (16:34)
[2018-10-09] MEDS: IPRATROPIUM/ALBUTEROL 0.5-3(2.5)MG/3ML NEB HHN SCH ×3 (16:44→23:49)
[2018-10-09] MEDS: BLOOD SUGAR DIAGNOSTIC STRIP TEST SCH (18:00)
[2018-10-09 18:43] LABS: HEMOGLOBIN 9.3 g/dL (12.0-16.0); MEAN CORPUSCULAR HEMOGLOBIN 29.1 pg (28.0-32.0); MEAN CORPUSCULAR VOLUME 90.4 fL (81.0-99.0); PLATELET 284 x1000/uL (130-400); RED BLOOD CELL COUNT 3.21 mill/uL (4.2-5.4); RED CELL DISTRIBUTION WIDTH 17.5 % (11.6-14.6)
[2018-10-09] MEDS: INSULIN LISPRO 100 UNITS/ML SUBCUT SCH (19:17)
[2018-10-09] MEDS ORDERED: NOREPINEPHRINE 16 MG in DEXT 5% WATER 500 ML IV SCH (19:30)
[2018-10-09] MEDS ORDERED: NOREPINEPHRINE 4 MG in DEXT 5% WATER 246 ML IV PRN (19:30)
[2018-10-09] MEDS: NOREPINEPHRINE 16 MG in DEXT 5% WATER 484 ML IV PRN (19:57)
[2018-10-09] MEDS: MIDAZOLAM HCL 50 MG in DEXTROSE 5% WATER 40 ML IV PRN (20:50)
[2018-10-09] MEDS ORDERED: ATROPINE SULFATE 1MG/10ML SYR IV NR (23:15)
[2018-10-10] VITALS (96 sets, daily range): BP systolic 80–164; BP diastolic 29–107
[2018-10-10] MEDS: BLOOD SUGAR DIAGNOSTIC STRIP TEST SCH ×4 (00:50→18:00)
[2018-10-10] MEDS: PIPERACILLIN/TAZ 2.25G PREMIX 50 ML IV SCH ×3 (02:10→21:47)
[2018-10-10] MEDS: IPRATROPIUM/ALBUTEROL 0.5-3(2.5)MG/3ML NEB HHN SCH ×5 (03:58→20:13)
[2018-10-10 05:57] LABS: HEMATOCRIT. 33.9 % (36.0-48.0); HEMOGLOBIN. 10.7 g/dL (12.0-16.0); MEAN CORPUSCULAR HEMOGLOBIN 28.6 pg (28.0-32.0); MEAN CORPUSCULAR VOLUME 90.4 fL (81.0-99.0); MEAN PLATELET VOLUME 8.7 fl (7.4-10.4); PLATELET 326 x1000/uL (130-400); RED BLOOD CELL COUNT 3.75 mill/uL (4.2-5.4); RED CELL DISTRIBUTION WIDTH 17.1 % (11.6-14.6)
[2018-10-10] MEDS: INSULIN LISPRO 100 UNITS/ML SUBCUT SCH ×4 (06:00→18:00)
[2018-10-10 06:06] LABS: CHLORIDE 98 mEq/L (98-107)
[2018-10-10 06:13] LABS: PHOSPHORUS 2.6 mg/dL (2.5-4.9)
[2018-10-10 08:01] LABS: BG BASE EXCESS 2.7 mmol/L (-2.0-2.0); BG CARBOXYHEMOGLOBIN 0.3 % (0.5-1.5); BG DEOXYHEMOGLOBIN 1.2 % (0.0-5.0); BG HCO3 ACT 26.2 mmol/L (22.0-26.0); BG METHEMOGLOBIN 1.3 % (0.0-1.5); BG OXYGEN SATURATION 98.8 % (92.0-98.5); BG OXYHEMOGLOBIN 97.2 % (94.0-97.0); BG PCO2 36.8 mmHg (35.0-45.0); BG PH 7.471 (7.350-7.450); BG PO2 177.4 mmHg (75.0-100.0); BG SAMPLE SITE RIGHT BRACHIAL; BG TIDAL VOLUME(mL) 500 mL; BG TOTAL HEMOGLOBIN 12.1 g/dL (12.0-18.0); BG VENT MODE VENT - A/C; BG VENT RATE 12 set
[2018-10-10] MEDS: FAMOTIDINE 20MG/2ML VIAL IV SCH (08:36)
[2018-10-10 09:33] LABS: PLATELET ESTIMATE NORMAL
[2018-10-10] MEDS ORDERED: DOPAMINE 800MG PREMIX (DOUBLE) 250 ML IV PRN (10:30)
[2018-10-10] MEDS: ASPIRIN 81MG EC TABLET PO SCH (13:15)
[2018-10-10] MEDS ORDERED: SODIUM BICARBONATE 4% (2.4MEQ) 5ML VIAL IV ONE (14:59)
[2018-10-10] MEDS ORDERED: LIDOCAINE HCL 1% 20ML VIAL (Pyxis) INJ ONE (14:59)
[2018-10-10] MEDS ORDERED: VANCOMYCIN 500 MG PREMIX 100 ML IV SCH (18:00)
[2018-10-10] MEDS: MIDAZOLAM HCL 50 MG in DEXTROSE 5% WATER 40 ML IV PRN (19:38)
[2018-10-11] VITALS (76 sets, daily range): BP systolic 90–157; BP diastolic 29–77
[2018-10-11] MEDS: IPRATROPIUM/ALBUTEROL 0.5-3(2.5)MG/3ML NEB HHN SCH ×7 (00:18→20:07)
[2018-10-11] MEDS: PIPERACILLIN/TAZ 2.25G PREMIX 50 ML IV SCH ×2 (02:07→10:46)
[2018-10-11] MEDS: NOREPINEPHRINE 16 MG in DEXT 5% WATER 484 ML IV PRN (02:08)
[2018-10-11 05:11] LABS: HEMATOCRIT. 32.9 % (36.0-48.0); HEMOGLOBIN. 10.3 g/dL (12.0-16.0); MEAN CORPUSCULAR HEMOGLOBIN 28.6 pg (28.0-32.0); MEAN CORPUSCULAR VOLUME 91.3 fL (81.0-99.0); MEAN PLATELET VOLUME 9.2 fl (7.4-10.4); PLATELET 261 x1000/uL (130-400); RED BLOOD CELL COUNT 3.61 mill/uL (4.2-5.4); RED CELL DISTRIBUTION WIDTH 17.8 % (11.6-14.6)
[2018-10-11 05:12] LABS: CHLORIDE 104 mEq/L (98-107)
[2018-10-11] MEDS: INSULIN LISPRO 100 UNITS/ML SUBCUT SCH ×4 (05:14→18:00)
[2018-10-11] MEDS: BLOOD SUGAR DIAGNOSTIC STRIP TEST SCH ×4 (05:15→18:00)
[2018-10-11 05:30] LABS: CREATINE KINASE 22 IU/L (26-192)
[2018-10-11 05:31] LABS: CREATINE KINASE MB FRACTION < 1.0 ng/mL (0.5-3.6); LDL CHOLESTEROL 46 mg/dL (5-100)
[2018-10-11 05:32] LABS: HDL CHOLESTEROL 19 mg/dL (40-59)
[2018-10-11] MEDS: ASPIRIN 81MG EC TABLET PO SCH (08:45)
[2018-10-11] MEDS: FAMOTIDINE 20MG/2ML VIAL IV SCH (08:45)
[2018-10-11 09:07] LABS: PLATELET ESTIMATE NORMAL
[2018-10-11 09:08] LABS: BG BASE EXCESS -1.1 mmol/L (-2.0-2.0); BG CARBOXYHEMOGLOBIN 0.7 % (0.5-1.5); BG DEOXYHEMOGLOBIN 0.2 % (0.0-5.0); BG FRACTION INSPIRED OXYGEN 60; BG HCO3 ACT 22.1 mmol/L (22.0-26.0); BG METHEMOGLOBIN 0.3 % (0.0-1.5); BG OXYGEN SATURATION 99.8 % (92.0-98.5); BG OXYHEMOGLOBIN 98.8 % (94.0-97.0); BG PCO2 32.1 mmHg (35.0-45.0); BG PH 7.456 (7.350-7.450); BG PO2 224.2 mmHg (75.0-100.0); BG SAMPLE SITE LEFT BRACHIAL; BG TIDAL VOLUME(mL) 500 mL; BG TOTAL HEMOGLOBIN 11.3 g/dL (12.0-18.0); BG VENT MODE VENT - A/C; BG VENT RATE 12 set
[2018-10-11] MEDS: MIDAZOLAM HCL 50 MG in DEXTROSE 5% WATER 40 ML IV PRN (10:45)
[2018-10-11] MEDS ORDERED: CEFAZOLIN 1000MG PREMIX 50 ML IV SCH (12:30)
[2018-10-11] MEDS: CEFAZOLIN 1000MG PREMIX 50 ML IV SCH (22:18)
[2018-10-12] VITALS (96 sets, daily range): BP systolic 52–187; BP diastolic 26–103
[2018-10-12] MEDS: IPRATROPIUM/ALBUTEROL 0.5-3(2.5)MG/3ML NEB HHN SCH ×6 (00:12→20:34)
[2018-10-12] MEDS: BLOOD SUGAR DIAGNOSTIC STRIP TEST SCH ×5 (00:43→23:44)
[2018-10-12] MEDS: INSULIN LISPRO 100 UNITS/ML SUBCUT SCH ×5 (00:49→23:44)
[2018-10-12] MEDS: MIDAZOLAM HCL 50 MG in DEXTROSE 5% WATER 40 ML IV PRN ×2 (02:15→12:45)
[2018-10-12] MEDS: NOREPINEPHRINE 16 MG in DEXT 5% WATER 234 ML IV PRN (02:17)
[2018-10-12 07:15] LABS: BG BASE EXCESS 0.3 mmol/L (-2.0-2.0); BG CARBOXYHEMOGLOBIN 0.3 % (0.5-1.5); BG DEOXYHEMOGLOBIN 0.6 % (0.0-5.0); BG HCO3 ACT 23.9 mmol/L (22.0-26.0); BG METHEMOGLOBIN 0.3 % (0.0-1.5); BG OXYGEN SATURATION 99.4 % (92.0-98.5); BG OXYHEMOGLOBIN 98.8 % (94.0-97.0); BG PCO2 34.5 mmHg (35.0-45.0); BG PH 7.458 (7.350-7.450); BG PO2 188.8 mmHg (75.0-100.0); BG SAMPLE SITE RIGHT BRACHIAL; BG TIDAL VOLUME(mL) 500 mL; BG TOTAL HEMOGLOBIN 10.2 g/dL (12.0-18.0); BG VENT MODE VENT - A/C; BG VENT RATE 12 set
[2018-10-12] MEDS: ASPIRIN 81MG EC TABLET PO SCH (08:09)
[2018-10-12] MEDS: FAMOTIDINE 20MG/2ML VIAL IV SCH (08:09)
[2018-10-12 09:28] LABS: HEMATOCRIT. 30.3 % (36.0-48.0); HEMOGLOBIN. 9.7 g/dL (12.0-16.0); MEAN CORPUSCULAR VOLUME 90.7 fL (81.0-99.0); MEAN PLATELET VOLUME 9.3 fl (7.4-10.4); PLATELET 212 x1000/uL (130-400); RED BLOOD CELL COUNT 3.34 mill/uL (4.2-5.4); RED CELL DISTRIBUTION WIDTH 17.8 % (11.6-14.6)
[2018-10-12 09:46] LABS: PHOSPHORUS 1.8 mg/dL (2.5-4.9)
[2018-10-12] MEDS: CEFAZOLIN 1000MG PREMIX 50 ML IV SCH ×2 (11:18→23:43)
[2018-10-12 11:24] LABS: PLATELET ESTIMATE NORMAL
[2018-10-12] MEDS ORDERED: INSULIN GLARGINE UD 100 UNITS/ML SYR SUBCUT SCH (22:00)
[2018-10-13] VITALS (64 sets, daily range): BP systolic 77–171; BP diastolic 34–109
[2018-10-13] MEDS: MIDAZOLAM HCL 50 MG in DEXTROSE 5% WATER 40 ML IV PRN ×2 (00:06→23:50)
[2018-10-13] MEDS: IPRATROPIUM/ALBUTEROL 0.5-3(2.5)MG/3ML NEB HHN SCH ×6 (01:05→20:13)
[2018-10-13 05:24] LABS: HEMATOCRIT. 27.6 % (36.0-48.0); HEMOGLOBIN. 8.8 g/dL (12.0-16.0); MEAN CORPUSCULAR HEMOGLOBIN 28.9 pg (28.0-32.0); MEAN CORPUSCULAR VOLUME 91.1 fL (81.0-99.0); MEAN PLATELET VOLUME 9.3 fl (7.4-10.4); PLATELET 168 x1000/uL (130-400); RED BLOOD CELL COUNT 3.03 mill/uL (4.2-5.4); RED CELL DISTRIBUTION WIDTH 17.6 % (11.6-14.6)
[2018-10-13 05:37] LABS: PHOSPHORUS 1.3 mg/dL (2.5-4.9)
[2018-10-13] MEDS: BLOOD SUGAR DIAGNOSTIC STRIP TEST SCH ×4 (06:35→22:54)
[2018-10-13] MEDS: INSULIN LISPRO 100 UNITS/ML SUBCUT SCH ×4 (06:40→22:53)
[2018-10-13] MEDS: FAMOTIDINE 20MG/2ML VIAL IV SCH (09:08)
[2018-10-13] MEDS: ASPIRIN 81MG EC TABLET PO SCH (09:08)
[2018-10-13 09:53] LABS: PLATELET ESTIMATE NORMAL
[2018-10-13 10:55] LABS: BG BASE EXCESS 0.9 mmol/L (-2.0-2.0); BG CARBOXYHEMOGLOBIN 0.1 % (0.5-1.5); BG DEOXYHEMOGLOBIN 1.2 % (0.0-5.0); BG HCO3 ACT 24.5 mmol/L (22.0-26.0); BG METHEMOGLOBIN 0.3 % (0.0-1.5); BG OXYGEN SATURATION 98.8 % (92.0-98.5); BG OXYHEMOGLOBIN 98.4 % (94.0-97.0); BG PCO2 34.7 mmHg (35.0-45.0); BG PH 7.466 (7.350-7.450); BG PO2 128.6 mmHg (75.0-100.0); BG SAMPLE SITE RIGHT BRACHIAL; BG TIDAL VOLUME(mL) 500 mL; BG TOTAL HEMOGLOBIN 9.1 g/dL (12.0-18.0); BG VENT MODE VENT - A/C; BG VENT RATE 12 set
[2018-10-13] MEDS ORDERED: POTASSIUM PHOS,M-BASIC-D-BASIC 15 MMOL in DEXT 5% WATER 245 ML IV NR (11:00)
[2018-10-13] MEDS: CEFAZOLIN 1000MG PREMIX 50 ML IV SCH ×2 (11:40→22:52)
[2018-10-13] MEDS: NOREPINEPHRINE 16 MG in DEXT 5% WATER 234 ML IV PRN (12:02)
[2018-10-13] MEDS: INSULIN GLARGINE UD 100 UNITS/ML SYR SUBCUT SCH (22:54)
[2018-10-14] VITALS (74 sets, daily range): BP systolic 73–181; BP diastolic 27–87
[2018-10-14] MEDS: IPRATROPIUM/ALBUTEROL 0.5-3(2.5)MG/3ML NEB HHN SCH ×6 (00:10→20:27)
[2018-10-14] MEDS: BLOOD SUGAR DIAGNOSTIC STRIP TEST SCH ×3 (05:25→18:51)
[2018-10-14] MEDS: INSULIN LISPRO 100 UNITS/ML SUBCUT SCH ×3 (05:26→18:00)
[2018-10-14 05:35] LABS: HEMOGLOBIN. 8.6 g/dL (12.0-16.0); MEAN CORPUSCULAR HEMOGLOBIN 29.7 pg (28.0-32.0); MEAN CORPUSCULAR VOLUME 89.8 fL (81.0-99.0); MEAN PLATELET VOLUME 9.2 fl (7.4-10.4); PLATELET 142 x1000/uL (130-400); RED BLOOD CELL COUNT 2.89 mill/uL (4.2-5.4); RED CELL DISTRIBUTION WIDTH 17.7 % (11.6-14.6)
[2018-10-14] MEDS: FAMOTIDINE 20MG/2ML VIAL IV SCH (09:53)
[2018-10-14] MEDS: CEFAZOLIN 1000MG PREMIX 50 ML IV SCH ×2 (09:53→22:51)
[2018-10-14] MEDS: ASPIRIN 81MG EC TABLET PO SCH (09:53)
[2018-10-14] MEDS ORDERED: LIDOCAINE HCL/PF 2% 20 MG/ML 10ML VIAL IJ NR (10:00)
[2018-10-14] MEDS ORDERED: LIDOCAINE HCL/PF 2% 20MG/ML 5 ML/VIAL INJ NR (10:00)
[2018-10-14 15:21] LABS: PLATELET ESTIMATE NORMAL
[2018-10-14] MEDS: INSULIN GLARGINE UD 100 UNITS/ML SYR SUBCUT SCH (21:45)
[2018-10-15] VITALS (59 sets, daily range): BP systolic 84–139; BP diastolic 40–78
[2018-10-15] MEDS: BLOOD SUGAR DIAGNOSTIC STRIP TEST SCH ×4 (00:12→17:19)
[2018-10-15] MEDS: IPRATROPIUM/ALBUTEROL 0.5-3(2.5)MG/3ML NEB HHN SCH ×6 (00:33→20:42)
[2018-10-15] MEDS: INSULIN LISPRO 100 UNITS/ML SUBCUT SCH ×4 (05:12→17:19)
[2018-10-15 05:44] LABS: BASOPHILS % 0.4 % (0.0-2.0); EOSINOPHILS % 1.8 % (0.0-5.0); HEMOGLOBIN. 7.6 g/dL (12.0-16.0); LYMPHOCYTES % 7.4 % (20.0-50.0); MEAN CORPUSCULAR HEMOGLOBIN 28.8 pg (28.0-32.0); MEAN CORPUSCULAR VOLUME 90.9 fL (81.0-99.0); MEAN PLATELET VOLUME 9.6 fl (7.4-10.4); NEUTROPHILS % 84.4 % (40.0-76.0); PLATELET 130 x1000/uL (130-400); RED BLOOD CELL COUNT 2.64 mill/uL (4.2-5.4); RED CELL DISTRIBUTION WIDTH 18.3 % (11.6-14.6)
[2018-10-15 06:11] LABS: PHOSPHORUS 1.9 mg/dL (2.5-4.9)
[2018-10-15 08:03] LABS: BG BASE EXCESS 2.4 mmol/L (-2.0-2.0); BG CARBOXYHEMOGLOBIN 0.4 % (0.5-1.5); BG DEOXYHEMOGLOBIN 2.7 % (0.0-5.0); BG FRACTION INSPIRED OXYGEN 40; BG HCO3 ACT 26.1 mmol/L (22.0-26.0); BG METHEMOGLOBIN 0.3 % (0.0-1.5); BG OXYGEN SATURATION 97.3 % (92.0-98.5); BG OXYHEMOGLOBIN 96.6 % (94.0-97.0); BG PCO2 36.7 mmHg (35.0-45.0); BG PO2 94.6 mmHg (75.0-100.0); BG SAMPLE SITE RIGHT BRACHIAL; BG TIDAL VOLUME(mL) 500 mL; BG TOTAL HEMOGLOBIN 8.4 g/dL (12.0-18.0); BG VENT MODE VENT - A/C; BG VENT RATE 12 set
[2018-10-15] MEDS: FAMOTIDINE 20MG/2ML VIAL IV SCH (08:11)
[2018-10-15] MEDS: ASPIRIN 81MG EC TABLET PO SCH (08:11)
[2018-10-15] MEDS: NOREPINEPHRINE 16 MG in DEXT 5% WATER 234 ML IV PRN (10:04)
[2018-10-15] MEDS: CEFAZOLIN 1000MG PREMIX 50 ML IV SCH ×2 (12:46→22:32)
[2018-10-15] MEDS: POTASSIUM-SODIUM PHOSPHATE POWDER PACKET PO NR ×2 (18:31→18:56)
[2018-10-15] MEDS: INSULIN GLARGINE UD 100 UNITS/ML SYR SUBCUT SCH (21:30)
[2018-10-16] VITALS (52 sets, daily range): BP systolic 94–176; BP diastolic 36–95
[2018-10-16] MEDS: IPRATROPIUM/ALBUTEROL 0.5-3(2.5)MG/3ML NEB HHN SCH ×6 (00:21→20:13)
[2018-10-16 05:53] LABS: BASOPHILS % 0.3 % (0.0-2.0); EOSINOPHILS % 1.4 % (0.0-5.0); HEMATOCRIT. 25.2 % (36.0-48.0); MEAN CORPUSCULAR HEMOGLOBIN 28.8 pg (28.0-32.0); MEAN CORPUSCULAR VOLUME 90.3 fL (81.0-99.0); MEAN PLATELET VOLUME 9.5 fl (7.4-10.4); MONOCYTES % 6.1 % (2.0-8.0); NEUTROPHILS % 80.2 % (40.0-76.0); PLATELET 141 x1000/uL (130-400); RED BLOOD CELL COUNT 2.79 mill/uL (4.2-5.4); RED CELL DISTRIBUTION WIDTH 18.2 % (11.6-14.6)
[2018-10-16] MEDS: INSULIN LISPRO 100 UNITS/ML SUBCUT SCH ×4 (06:00→17:41)
[2018-10-16 06:09] LABS: CHLORIDE 109 mEq/L (98-107)
[2018-10-16 06:21] LABS: PHOSPHORUS 1.6 mg/dL (2.5-4.9)
[2018-10-16] MEDS: BLOOD SUGAR DIAGNOSTIC STRIP TEST SCH ×4 (06:35→17:41)
[2018-10-16] MEDS: FAMOTIDINE 20MG/2ML VIAL IV SCH (09:11)
[2018-10-16] MEDS: ASPIRIN 81MG EC TABLET PO SCH (09:11)
[2018-10-16] MEDS: CEFAZOLIN 1000MG PREMIX 50 ML IV SCH ×2 (11:27→22:32)
[2018-10-16] MEDS ORDERED: POTASSIUM-SODIUM PHOSPHATE POWDER PACKET PO NR (18:11)
[2018-10-16] MEDS: INSULIN GLARGINE UD 100 UNITS/ML SYR SUBCUT SCH (22:32)
[2018-10-17] VITALS (44 sets, daily range): BP systolic 75–208; BP diastolic 36–125
[2018-10-17] MEDS: IPRATROPIUM/ALBUTEROL 0.5-3(2.5)MG/3ML NEB HHN SCH ×6 (00:06→20:17)
[2018-10-17] MEDS: BLOOD SUGAR DIAGNOSTIC STRIP TEST SCH ×4 (00:23→17:49)
[2018-10-17] MEDS: INSULIN LISPRO 100 UNITS/ML SUBCUT SCH ×4 (05:52→17:49)
[2018-10-17 06:01] LABS: BASOPHILS % 0.5 % (0.0-2.0); EOSINOPHILS % 1.5 % (0.0-5.0); HEMATOCRIT. 26.5 % (36.0-48.0); HEMOGLOBIN. 8.4 g/dL (12.0-16.0); LYMPHOCYTES % 7.6 % (20.0-50.0); MEAN CORPUSCULAR HEMOGLOBIN 28.9 pg (28.0-32.0); MEAN PLATELET VOLUME 9.5 fl (7.4-10.4); MONOCYTES % 6.1 % (2.0-8.0); NEUTROPHILS % 84.3 % (40.0-76.0); PLATELET 157 x1000/uL (130-400); RED BLOOD CELL COUNT 2.91 mill/uL (4.2-5.4); RED CELL DISTRIBUTION WIDTH 18.4 % (11.6-14.6)
[2018-10-17 06:10] LABS: PHOSPHORUS 2.8 mg/dL (2.5-4.9)
[2018-10-17] MEDS: FAMOTIDINE 20MG/2ML VIAL IV SCH (09:21)
[2018-10-17] MEDS: ASPIRIN 81MG EC TABLET PO SCH (09:21)
[2018-10-17] MEDS ORDERED: CEFAZOLIN 1000MG PREMIX 50 ML IV SCH (18:00)
[2018-10-17] MEDS ORDERED: LEVOFLOXACIN 500MG PREMIX 100 ML IV SCH (18:30)
[2018-10-17] MEDS: INSULIN GLARGINE UD 100 UNITS/ML SYR SUBCUT SCH (21:58)
[2018-10-18] VITALS (39 sets, daily range): BP systolic 95–151; BP diastolic 47–69
[2018-10-18] MEDS: IPRATROPIUM/ALBUTEROL 0.5-3(2.5)MG/3ML NEB HHN SCH ×6 (00:17→23:56)
[2018-10-18 05:31] LABS: HEMOGLOBIN. 8.1 g/dL (12.0-16.0); MEAN CORPUSCULAR HEMOGLOBIN 29.4 pg (28.0-32.0); MEAN CORPUSCULAR VOLUME 91.2 fL (81.0-99.0); MEAN PLATELET VOLUME 9.6 fl (7.4-10.4); PLATELET 176 x1000/uL (130-400); RED BLOOD CELL COUNT 2.75 mill/uL (4.2-5.4); RED CELL DISTRIBUTION WIDTH 18.7 % (11.6-14.6)
[2018-10-18 05:40] LABS: CHLORIDE 111 mEq/L (98-107)
[2018-10-18] MEDS: INSULIN LISPRO 100 UNITS/ML SUBCUT SCH ×5 (06:00→23:38)
[2018-10-18] MEDS: BLOOD SUGAR DIAGNOSTIC STRIP TEST SCH ×5 (06:11→23:33)
[2018-10-18 07:54] LABS: BG BASE EXCESS 3.3 mmol/L (-2.0-2.0); BG CARBOXYHEMOGLOBIN 0.5 % (0.5-1.5); BG DEOXYHEMOGLOBIN 1.5 % (0.0-5.0); BG METHEMOGLOBIN 0.2 % (0.0-1.5); BG OXYGEN SATURATION 98.5 % (92.0-98.5); BG OXYHEMOGLOBIN 97.8 % (94.0-97.0); BG PCO2 37.3 mmHg (35.0-45.0); BG PH 7.477 (7.350-7.450); BG PO2 117.7 mmHg (75.0-100.0); BG SAMPLE SITE RIGHT BRACHIAL; BG TIDAL VOLUME(mL) 500 mL; BG TOTAL HEMOGLOBIN 8.5 g/dL (12.0-18.0); BG VENT MODE VENT - A/C; BG VENT RATE 12 set
[2018-10-18] MEDS: FAMOTIDINE 20MG/2ML VIAL IV SCH (08:39)
[2018-10-18] MEDS: ASPIRIN 81MG EC TABLET PO SCH (08:39)
[2018-10-18 09:51] LABS: PLATELET ESTIMATE NORMAL
[2018-10-18] MEDS ORDERED: TRAMADOL 50MG TABLET PO PRN (18:15)
[2018-10-18] MEDS: INSULIN GLARGINE UD 100 UNITS/ML SYR SUBCUT SCH (21:28)
[2018-10-19] VITALS (54 sets, daily range): BP systolic 87–137; BP diastolic 41–65
[2018-10-19] MEDS: IPRATROPIUM/ALBUTEROL 0.5-3(2.5)MG/3ML NEB HHN SCH ×5 (04:23→23:50)
[2018-10-19] MEDS: INSULIN LISPRO 100 UNITS/ML SUBCUT SCH ×4 (05:00→23:11)
[2018-10-19] MEDS: BLOOD SUGAR DIAGNOSTIC STRIP TEST SCH ×4 (05:00→23:11)
[2018-10-19 06:07] LABS: HEMATOCRIT. 27.7 % (36.0-48.0); HEMOGLOBIN. 8.6 g/dL (12.0-16.0); MEAN CORPUSCULAR HEMOGLOBIN 28.3 pg (28.0-32.0); MEAN CORPUSCULAR VOLUME 90.8 fL (81.0-99.0); MEAN PLATELET VOLUME 9.8 fl (7.4-10.4); PLATELET 199 x1000/uL (130-400); RED BLOOD CELL COUNT 3.05 mill/uL (4.2-5.4); RED CELL DISTRIBUTION WIDTH 18.7 % (11.6-14.6)
[2018-10-19 06:29] LABS: PHOSPHORUS 1.9 mg/dL (2.5-4.9)
[2018-10-19] MEDS ORDERED: POTASSIUM-SODIUM PHOSPHATE POWDER PACKET PO NR (09:30)
[2018-10-19] MEDS: FAMOTIDINE 20MG/2ML VIAL IV SCH (10:23)
[2018-10-19] MEDS: ASPIRIN 81MG EC TABLET PO SCH (10:23)
[2018-10-19 10:52] LABS: PLATELET ESTIMATE NORMAL
[2018-10-19 11:32] LABS: BG CARBOXYHEMOGLOBIN 0.3 % (0.5-1.5); BG DEOXYHEMOGLOBIN 2.9 % (0.0-5.0); BG FRACTION INSPIRED OXYGEN 40; BG METHEMOGLOBIN 0.5 % (0.0-1.5); BG OXYGEN SATURATION 97.1 % (92.0-98.5); BG OXYHEMOGLOBIN 96.3 % (94.0-97.0); BG PCO2 38.9 mmHg (35.0-45.0); BG PO2 94.3 mmHg (75.0-100.0); BG PRESSURE SUPPORT 12; BG SAMPLE SITE LEFT RADIAL; BG TIDAL VOLUME(mL) 450 mL; BG TOTAL HEMOGLOBIN 8.5 g/dL (12.0-18.0); BG VENT MODE VENT - SIMV; BG VENT RATE 6 set
[2018-10-19] MEDS: METRONIDAZOLE 500 MG PREMIX 100 ML IV SCH ×2 (13:46→20:55)
[2018-10-19] MEDS: MEROPENEM 500 MG in SODIUM CHLORIDE 0.9% 50 ML IV SCH (13:46)
[2018-10-19 16:43] LABS: TOTAL IRON BINDING CAPACITY 126 ug/dL (250-450)
[2018-10-19] MEDS ORDERED: EPOETIN ALFA 4000UNITS/ML VIAL SUBCUT SCH (21:00)
[2018-10-19] MEDS: INSULIN GLARGINE UD 100 UNITS/ML SYR SUBCUT SCH (21:08)
[2018-10-20] VITALS (50 sets, daily range): BP systolic 65–149; BP diastolic 30–71
[2018-10-20] MEDS: IPRATROPIUM/ALBUTEROL 0.5-3(2.5)MG/3ML NEB HHN SCH ×4 (04:05→15:29)
[2018-10-20] MEDS: METRONIDAZOLE 500 MG PREMIX 100 ML IV SCH ×2 (05:00→12:37)
[2018-10-20 05:06] LABS: HEMATOCRIT. 22.9 % (36.0-48.0); HEMOGLOBIN. 7.2 g/dL (12.0-16.0); MEAN CORPUSCULAR HEMOGLOBIN 28.1 pg (28.0-32.0); MEAN CORPUSCULAR VOLUME 89.7 fL (81.0-99.0); MEAN PLATELET VOLUME 10.2 fl (7.4-10.4); PLATELET 188 x1000/uL (130-400); RED BLOOD CELL COUNT 2.55 mill/uL (4.2-5.4); RED CELL DISTRIBUTION WIDTH 18.5 % (11.6-14.6)
[2018-10-20 05:29] LABS: PHOSPHORUS 1.9 mg/dL (2.5-4.9)
[2018-10-20] MEDS: INSULIN LISPRO 100 UNITS/ML SUBCUT SCH ×3 (05:29→18:00)
[2018-10-20] MEDS: BLOOD SUGAR DIAGNOSTIC STRIP TEST SCH ×3 (05:29→18:00)
[2018-10-20 08:39] LABS: BG BASE EXCESS 3.3 mmol/L (-2.0-2.0); BG CARBOXYHEMOGLOBIN 0.7 % (0.5-1.5); BG DEOXYHEMOGLOBIN 2.2 % (0.0-5.0); BG FRACTION INSPIRED OXYGEN 40; BG HCO3 ACT 27.5 mmol/L (22.0-26.0); BG METHEMOGLOBIN 0.4 % (0.0-1.5); BG OXYGEN SATURATION 97.8 % (92.0-98.5); BG OXYHEMOGLOBIN 96.7 % (94.0-97.0); BG PCO2 40.1 mmHg (35.0-45.0); BG PH 7.454 (7.350-7.450); BG PO2 99.9 mmHg (75.0-100.0); BG PRESSURE SUPPORT 12; BG SAMPLE SITE RIGHT BRACHIAL; BG TIDAL VOLUME(mL) 450 mL; BG VENT MODE VENT - SIMV; BG VENT RATE 6 set
[2018-10-20] MEDS ORDERED: SODIUM PHOS,M-BASIC-D-BASIC 20 MM in DEXT 5% WATER 243.3333 ML IV SCH (09:00)
[2018-10-20] MEDS: FAMOTIDINE 20MG/2ML VIAL IV SCH (09:13)
[2018-10-20] MEDS: ASPIRIN 81MG EC TABLET PO SCH (09:13)
[2018-10-20 10:44] LABS: PLATELET ESTIMATE NORMAL
[2018-10-20 12:36] LABS: BG BASE EXCESS 3.3 mmol/L (-2.0-2.0); BG CARBOXYHEMOGLOBIN 0.2 % (0.5-1.5); BG DEOXYHEMOGLOBIN 3.6 % (0.0-5.0); BG FRACTION INSPIRED OXYGEN 40; BG HCO3 ACT 27.6 mmol/L (22.0-26.0); BG METHEMOGLOBIN 0.2 % (0.0-1.5); BG OXYGEN SATURATION 96.4 % (92.0-98.5); BG PCO2 40.8 mmHg (35.0-45.0); BG PH 7.448 (7.350-7.450); BG PO2 84.6 mmHg (75.0-100.0); BG PRESSURE SUPPORT 12; BG SAMPLE SITE RIGHT BRACHIAL; BG TIDAL VOLUME(mL) 450 mL; BG TOTAL HEMOGLOBIN 7.8 g/dL (12.0-18.0); BG VENT MODE VENT - SIMV; BG VENT RATE 6 set
[2018-10-20] MEDS: MEROPENEM 500 MG in SODIUM CHLORIDE 0.9% 50 ML IV SCH (14:00)
[2018-10-20] MEDS ORDERED: LORAZEPAM 2MG/ML CPJ IV PRN ×2 (15:45→20:30)
[2018-10-20] MEDS: HYDROMORPHONE HCL/PF 2MG/ML CPJ IV PRN ×2 (15:47→21:10)
[2018-10-20] MEDS ORDERED: HYDROMORPHONE HCL/PF 2MG/ML CPJ IV PRN (20:30)
[2018-10-20] MEDS ORDERED: FAMOTIDINE 20MG/2ML VIAL IV SCH (21:00)
[2018-10-21] VITALS (7 sets, daily range): BP systolic 98–166; BP diastolic 42–72
[2018-10-21] MEDS: FAMOTIDINE 20MG/2ML VIAL IV SCH (08:25)
[2018-10-21] MEDS: IPRATROPIUM/ALBUTEROL 0.5-3(2.5)MG/3ML NEB HHN SCH ×2 (11:54→17:03)
[2018-10-21] MEDS: INSULIN LISPRO 100 UNITS/ML SUBCUT SCH ×2 (12:00→17:18)
[2018-10-21] MEDS: ASPIRIN 81MG EC TABLET PO SCH (12:49)
[2018-10-21] MEDS: METRONIDAZOLE 500 MG PREMIX 100 ML IV SCH ×2 (12:49→20:50)
[2018-10-21] MEDS: BLOOD SUGAR DIAGNOSTIC STRIP TEST SCH ×2 (12:53→17:18)
[2018-10-21] MEDS: MEROPENEM 500 MG in SODIUM CHLORIDE 0.9% 50 ML IV SCH (15:30)
[2018-10-21] MEDS: INSULIN GLARGINE UD 100 UNITS/ML SYR SUBCUT SCH (21:59)
[2018-10-22] VITALS: BP 156/65
[2018-10-22] MEDS: BLOOD SUGAR DIAGNOSTIC STRIP TEST SCH ×4 (00:26→17:02)
[2018-10-22] MEDS: IPRATROPIUM/ALBUTEROL 0.5-3(2.5)MG/3ML NEB HHN SCH ×6 (00:27→19:54)
[2018-10-22] MEDS: METRONIDAZOLE 500 MG PREMIX 100 ML IV SCH ×3 (03:19→20:18)
[2018-10-22 04:00] VITALS: BP 157/65
[2018-10-22] MEDS: HYDROMORPHONE HCL/PF 2MG/ML CPJ IV PRN (05:47)
[2018-10-22] MEDS: INSULIN LISPRO 100 UNITS/ML SUBCUT SCH ×4 (06:00→17:02)
[2018-10-22 07:33] LABS: BASOPHILS % 0.5 % (0.0-2.0); EOSINOPHILS % 0.8 % (0.0-5.0); HEMATOCRIT. 23.1 % (36.0-48.0); HEMOGLOBIN. 7.4 g/dL (12.0-16.0); LYMPHOCYTES % 9.8 % (20.0-50.0); MEAN CORPUSCULAR HEMOGLOBIN 28.3 pg (28.0-32.0); MEAN CORPUSCULAR VOLUME 88.9 fL (81.0-99.0); MEAN PLATELET VOLUME 9.8 fl (7.4-10.4); MONOCYTES % 8.6 % (2.0-8.0); NEUTROPHILS % 80.3 % (40.0-76.0); PLATELET 236 x1000/uL (130-400); RED CELL DISTRIBUTION WIDTH 18.8 % (11.6-14.6)
[2018-10-22 07:43] LABS: PHOSPHORUS 2.9 mg/dL (2.5-4.9)
[2018-10-22 08:00] VITALS: BP 132/43
[2018-10-22] MEDS: ASPIRIN 81MG EC TABLET PO SCH (08:32)
[2018-10-22] MEDS: FAMOTIDINE 20MG/2ML VIAL IV SCH (08:32)
[2018-10-22 12:00] VITALS: BP 105/49
[2018-10-22] MEDS: MEROPENEM 500 MG in SODIUM CHLORIDE 0.9% 50 ML IV SCH (14:35)
[2018-10-22 16:00] VITALS: BP 137/53
[2018-10-22 18:28] LABS: HEPATITIS B SURFACE ANTIGEN NEGATIVE
[2018-10-22 18:57] LABS: HEPATITIS A AB IGM NEGATIVE (NEGATIVE)
[2018-10-22 20:00] VITALS: BP 169/61
[2018-10-22] MEDS ORDERED: EPOETIN ALFA 4000UNITS/ML VIAL SUBCUT SCH (21:00)
[2018-10-22] MEDS: EPOETIN ALFA 10000UNITS/ML VIAL SUBCUT SCH (21:26)
[2018-10-22] MEDS: INSULIN GLARGINE UD 100 UNITS/ML SYR SUBCUT SCH (21:27)
[2018-10-23] VITALS: BP 166/56
[2018-10-23] MEDS: BLOOD SUGAR DIAGNOSTIC STRIP TEST SCH ×4 (00:37→17:59)
[2018-10-23] MEDS: IPRATROPIUM/ALBUTEROL 0.5-3(2.5)MG/3ML NEB HHN SCH ×5 (02:18→20:14)
[2018-10-23 04:00] VITALS: BP 166/79
[2018-10-23] MEDS: INSULIN LISPRO 100 UNITS/ML SUBCUT SCH ×4 (06:00→18:00)
[2018-10-23 08:00] VITALS: BP 153/65
[2018-10-23] MEDS: METRONIDAZOLE 500MG TABLET PO SCH ×2 (09:00→21:08)
[2018-10-23] MEDS: FAMOTIDINE 20MG/2ML VIAL IV SCH (09:12)
[2018-10-23] MEDS: ASPIRIN 81MG EC TABLET PO SCH (09:12)
[2018-10-23 12:00] VITALS: BP 155/69
[2018-10-23] MEDS: MEROPENEM 500 MG in SODIUM CHLORIDE 0.9% 50 ML IV SCH ×2 (15:39→15:48)
[2018-10-23 16:00] VITALS: BP 112/42
[2018-10-23 20:00] VITALS: BP 152/69
[2018-10-23] MEDS: INSULIN GLARGINE UD 100 UNITS/ML SYR SUBCUT SCH (23:15)
[2018-10-24] VITALS: BP 143/65
[2018-10-24] MEDS: IPRATROPIUM/ALBUTEROL 0.5-3(2.5)MG/3ML NEB HHN SCH ×6 (00:14→23:43)
[2018-10-24 04:00] VITALS: BP 118/55
[2018-10-24] MEDS: INSULIN LISPRO 100 UNITS/ML SUBCUT SCH ×4 (06:00→17:05)
[2018-10-24] MEDS: BLOOD SUGAR DIAGNOSTIC STRIP TEST SCH ×4 (06:00→17:05)
[2018-10-24 08:00] VITALS: BP 141/73
[2018-10-24] MEDS: METRONIDAZOLE 500MG TABLET PO SCH ×2 (08:19→21:00)
[2018-10-24] MEDS: ASPIRIN 81MG EC TABLET PO SCH (08:19)
[2018-10-24] MEDS: FAMOTIDINE 20MG/2ML VIAL IV SCH (08:19)
[2018-10-24 08:21] LABS: HIV SCREEN 4G Non Reactive (Non Reactive)
[2018-10-24] MEDS: HYDROMORPHONE HCL/PF 2MG/ML CPJ IV PRN (09:40)
[2018-10-24 12:00] VITALS: BP 143/61
[2018-10-24] MEDS: MEROPENEM 500 MG in SODIUM CHLORIDE 0.9% 50 ML IV SCH (13:13)
[2018-10-24 16:00] VITALS: BP 127/55
[2018-10-24 20:00] VITALS: BP 148/64
[2018-10-25] VITALS (10 sets, daily range): BP systolic 86–146; BP diastolic 48–75
[2018-10-25] MEDS: BLOOD SUGAR DIAGNOSTIC STRIP TEST SCH ×4 (00:26→17:41)
[2018-10-25] MEDS: METRONIDAZOLE 500MG TABLET PO SCH ×3 (00:27→21:06)
[2018-10-25] MEDS: INSULIN GLARGINE UD 100 UNITS/ML SYR SUBCUT SCH ×2 (00:30→21:11)
[2018-10-25] MEDS: EPOETIN ALFA 10000UNITS/ML VIAL SUBCUT SCH (00:31)
[2018-10-25] MEDS: IPRATROPIUM/ALBUTEROL 0.5-3(2.5)MG/3ML NEB HHN SCH ×3 (04:05→17:36)
[2018-10-25] MEDS: INSULIN LISPRO 100 UNITS/ML SUBCUT SCH ×4 (06:00→17:41)
[2018-10-25 07:18] LABS: MEAN CORPUSCULAR VOLUME 88.9 fL (81.0-99.0); MEAN PLATELET VOLUME 9.1 fl (7.4-10.4); PLATELET 266 x1000/uL (130-400); RED BLOOD CELL COUNT 2.37 mill/uL (4.2-5.4)
[2018-10-25] MEDS: FAMOTIDINE 20MG/2ML VIAL IV SCH (08:18)
[2018-10-25] MEDS: ASPIRIN 81MG EC TABLET PO SCH (08:18)
[2018-10-25 08:35] LABS: HEMOGLOBIN. 6.6 g/dL (12.0-16.0)
[2018-10-25] MEDS ORDERED: FOLIC ACID/VITAMIN B COMP W-C TABLET GT SCH (09:00)
[2018-10-25] MEDS: HYDROMORPHONE HCL/PF 2MG/ML CPJ IV PRN (11:38)
[2018-10-25 12:40] LABS: PLATELET ESTIMATE NORMAL
[2018-10-25] MEDS: MEROPENEM 500 MG in SODIUM CHLORIDE 0.9% 50 ML IV SCH (14:34)
[2018-10-25 20:01] LABS: HEMOGLOBIN 9.7 g/dL (12.0-16.0)
== END 2018-10-26 00:34 | DRG 853 ==
LOC: ER 08:36 → CVICU 08:45 → EDBEDREQ 08:47 → CANRESERV 10:38 → ENRESERV 10:38 → EDRESERV 10:38 → ENRESERV 11:54 → 6EST 10-21 01:10
PROVIDERS: ADMIT Internal Medicine Endocrinology, Diabetes & Metabolism; ATTEND Internal Medicine Endocrinology, Diabetes & Metabolism
PROC: 0BH17EZ Insertion of Endotracheal Airway into Trachea, Via Natural or Artificial Opening (ICD-10-PCS; 2018-10-09)
PROC: 5A1955Z Respiratory Ventilation, Greater than 96 Consecutive Hours (ICD-10-PCS; 2018-10-09)
PROC: 02HV33Z Insertion of Infusion Device into Superior Vena Cava, Percutaneous Approach (ICD-10-PCS; 2018-10-09)
PROC: B548ZZA Ultrasonography of Superior Vena Cava, Guidance (ICD-10-PCS; 2018-10-09)
PROC: 06HY33Z Insertion of Infusion Device into Lower Vein, Percutaneous Approach (ICD-10-PCS; 2018-10-11)
PROC: B54CZZA Ultrasonography of Left Lower Extremity Veins, Guidance (ICD-10-PCS; 2018-10-11)
PROC: 0QBN0ZZ Excision of Right Metatarsal, Open Approach (ICD-10-PCS; principal; 2018-10-14)
PROC: 5A1D70Z Performance of Urinary Filtration, Intermittent, Less than 6 Hours Per Day (ICD-10-PCS; 2018-10-21)
PROC: 05PYX3Z Removal of Infusion Device from Upper Vein, External Approach (ICD-10-PCS; 2018-10-21)
PROC: 5A1D70Z Performance of Urinary Filtration, Intermittent, Less than 6 Hours Per Day (ICD-10-PCS; 2018-10-22)
PROC: 5A1D70Z Performance of Urinary Filtration, Intermittent, Less than 6 Hours Per Day (ICD-10-PCS; 2018-10-24)
PROC: 30233N1 Transfusion of Nonautologous Red Blood Cells into Peripheral Vein, Percutaneous Approach (ICD-10-PCS; 2018-10-25)
DX: A41.59 Other Gram-negative sepsis (principal); L89.614 Pressure ulcer of right heel, stage 4; R65.21 Severe sepsis with septic shock; E43 Unspecified severe protein-calorie malnutrition; N18.6 End stage renal disease; I50.33 Acute on chronic diastolic (congestive) heart failure; G92 Toxic encephalopathy; J80 Acute respiratory distress syndrome; J18.9 Pneumonia, unspecified organism; I63.9 Cerebral infarction, unspecified; I13.2 Hypertensive heart and chronic kidney disease with heart failure and with stage 5 chronic kidney disease, or end stage renal disease; D68.59 Other primary thrombophilia; E87.0 Hyperosmolality and hypernatremia; N39.0 Urinary tract infection, site not specified; N17.9 Acute kidney failure, unspecified; I82.C11 Acute embolism and thrombosis of right internal jugular vein; I82.611 Acute embolism and thrombosis of superficial veins of right upper extremity; G95.20 Unspecified cord compression; L97.419 Non-pressure chronic ulcer of right heel and midfoot with unspecified severity; E11.52 Type 2 diabetes mellitus with diabetic peripheral angiopathy with gangrene; I96 Gangrene, not elsewhere classified; G81.91 Hemiplegia, unspecified affecting right dominant side; Z99.11 Dependence on respirator [ventilator] status; B96.4 Proteus (mirabilis) (morganii) as the cause of diseases classified elsewhere; D47.2 Monoclonal gammopathy; D63.8 Anemia in other chronic diseases classified elsewhere; E11.319 Type 2 diabetes mellitus with unspecified diabetic retinopathy without macular edema; E11.43 Type 2 diabetes mellitus with diabetic autonomic (poly)neuropathy; E11.22 Type 2 diabetes mellitus with diabetic chronic kidney disease; E78.00 Pure hypercholesterolemia, unspecified; E83.39 Other disorders of phosphorus metabolism; Z51.5 Encounter for palliative care; K86.89 Other specified diseases of pancreas; K80.20 Calculus of gallbladder without cholecystitis without obstruction; K44.9 Diaphragmatic hernia without obstruction or gangrene; K22.2 Esophageal obstruction; L89.609 Pressure ulcer of unspecified heel, unspecified stage; I95.1 Orthostatic hypotension; J44.9 Chronic obstructive pulmonary disease, unspecified; I48.0 Paroxysmal atrial fibrillation; I27.20 Pulmonary hypertension, unspecified; E11.42 Type 2 diabetes mellitus with diabetic polyneuropathy; E11.621 Type 2 diabetes mellitus with foot ulcer; Z66 Do not resuscitate; K31.819 Angiodysplasia of stomach and duodenum without bleeding; K31.84 Gastroparesis; E11.51 Type 2 diabetes mellitus with diabetic peripheral angiopathy without gangrene; E87.6 Hypokalemia; E78.5 Hyperlipidemia, unspecified; F03.90 Unspecified dementia, unspecified severity, without behavioral disturbance, psychotic disturbance, mood disturbance, and anxiety; G89.29 Other chronic pain; I25.10 Atherosclerotic heart disease of native coronary artery without angina pectoris; M15.9 Polyosteoarthritis, unspecified; M24.573 Contracture, unspecified ankle; M48.061 Spinal stenosis, lumbar region without neurogenic claudication; H54.7 Unspecified visual loss; Z79.4 Long term (current) use of insulin; Z86.73 Personal history of transient ischemic attack (TIA), and cerebral infarction without residual deficits; Z86.79 Personal history of other diseases of the circulatory system; Z87.01 Personal history of pneumonia (recurrent); Z86.14 Personal history of Methicillin resistant Staphylococcus aureus infection; Z99.2 Dependence on renal dialysis; Z91.81 History of falling; Z83.3 Family history of diabetes mellitus; Z86.010 Personal history of colon polyps; Z82.49 Family history of ischemic heart disease and other diseases of the circulatory system; Z82.3 Family history of stroke; Z80.3 Family history of malignant neoplasm of breast; Z87.19 Personal history of other diseases of the digestive system; Z80.1 Family history of malignant neoplasm of trachea, bronchus and lung; Z90.49 Acquired absence of other specified parts of digestive tract; Z90.710 Acquired absence of both cervix and uterus; Z78.1 Physical restraint status; Z87.81 Personal history of (healed) traumatic fracture; Z88.0 Allergy status to penicillin; Z68.25 Body mass index [BMI] 25.0-25.9, adult
CPT/HCPCS: 31500; 36415; 36569; 36589; 36600; 71045; 73630; 73650; 76700; 76937; 78580; 80048; 80051; 80061; 80069; 82375; 82533; 82550; 82553; 82728; 82805; 82962; 83540; 83550; 83605; 83735; 84100; 84134; 84145; 84443; 84484; 85014; 85018; 85027; 85379; 86705; 86709; 86803; 86850; 86900; 86920; 87070; 87077; 87186; 87340; 87389; 88304; 88311; 92610; 93005; 93306; 93970; 93971; 94002; 94003; 94640; 99291; A6261; C1725; C1752; C1769; J0690; J0885; J1170; J1265; J1815; J1956; J2060; J2185; J2250; J2543; J3370; J3490; J7030; J7040; J7050; J7060; J7620; P9016